=== PATIENT | female | born 1935 | race Caucasian/White ===

== ENCOUNTER 2025-01-26 15:13 | Emergency (ER) | payer OTHER, SELFPAY ==
--- OUTSIDE RECORDS SUMMARY | 2025-01-26 15:16 | XMS_ITS | Clinical Summary ---
Author Organization [facility] Address [facility] [place] [address] Care Team Providers Care Coding Quality Analyst Name Role Phone Unavailable Primary Care Provider Unavailabl e Social History Tobacco Use Types Packs/Day Years Used Date Smoking Tobacco: Never Assessed Comments Unknown Sex and Gender Information Value Date Recorded Sex Assigned at Not on file Legal Sex Female 8:07 PM CDT Gender Identity Not on file Sexual Orientation Not on file Plan of Treatment Health Maintenance Due Date Last Done Comments DTaP, Tdap and Td Vaccines ( 1 - Tdap) 1956 Zoster Vaccines (1 of 2) 1987 Pneumococcal Vaccine: 65+ Ye ars (1 of 1 - PCV) 2002 RSV Immunization or 60+ Years (1 - 1-dose 75+ series) 2012 COVID-19 Vaccine (2023-2 5 season) 2024 Influenza Adult (#1) 2024 Meningococcal B Vaccine Aged Out No l onger eligible based on patient's age to complete this topic Meningococcal Vaccine Aged Out No loy jim eligible based on patient's age to complete this topic RSV Immunizations Under 20 Months Aged Out No longer eligible based on patient's age to complete this topic
--- OUTSIDE RECORDS SUMMARY | 2025-01-26 15:16 | XMS_ITS | Continuity of Care Document ---
Author Organization [facility] Address [address] [place] [address] [place] [address] Phone Care Team Providers Care Sales Office Assistant Name Role Phone Mark Moon DO Unavailable Unavailable Advance Directives Directive Yes / No Effective Date File Name No Information Encounters Encounter Description Practice Location Reason(s) For Visit Diagnoses Date Provider Providers Copied on Encounter [facility], [address] [place] [address] [address], [place], [place], [id number], [place] [phone] [facility] No Information Red Titus. [address] [facility], [place], [address], [place]. tel: [phone] Family History Family Member Type Diagnosis Age At Onset No Information Payers Payer name Insurance type Covered green party ID Authoriza tion(s) Medicare [facility] [id number] BCBS [place] Commercial [id number] Social History Type Description Quantity Date Captured [...]
[2025-01-26 15:43] VITALS: BP 154/83; PULSE 78; RESP 16; TEMP 36.6; O2SAT 96
[2025-01-26 19:02] VITALS: BP 148/57; PULSE 83; RESP 16; TEMP 36.6; O2SAT 97
[2025-01-26 22:45] VITALS: BP 141/63; PULSE 76; RESP 14; O2SAT 99
--- NOTE | 2025-01-26 23:40 | ED_ITS ---
HPI - General Adult General Chief complaint: Extremity Injury, Lower Stated complaint: duncan leg pain Time Seen by Provider: 01/26/25 23:04 History of Present Illness HPI narrative: This is an 89-year-old female with history of sciatica presenting for sciatica pain. The over last 3 and half weeks been having pain in her left glute radiating down her leg. She now has right side as well. She has taken Motrin Tylenol with no relief. Her primary care physician prescribed her tramadol w hich she says she is allergic to as she developed a dry mouth and some eye swelling. She then was prescribed gabapentin said she was allergic to as well due to dry mouth and eye swelling. She is now requesting Percocet which she has had in the past which has been effective for her. She denies any urinary retention or bowel incontinence. No weakness to the legs. No saddle anesthesia. No history of cancer, fevers, IV drug abuse or trauma. Related Data Allergies Allergy/AdvReac Type Severity Reaction Status Date / Time gabapentin Allergy Severe Swelling Verified 01/23/25 09:05 of Lip/Tongue/Throat Sulfa (Sulfonamide Allergy Unknown Unknown Verified 01/23/25 09:05 Antibiotics) tramadol Allergy Unknown Unknown Unverified 01/23/25 09:10 codeine Allergy Unknown Verified 01/23/25 09:05 PENDING SALE TO [facility] Social History Social History Smoking status: Former smoker Exam Narrative: APPEARANCE: No apparent distress. Head: atraumatic. EYES: EOMI, NOSE: Atraumatic NECK: Trachea midline RESPIRATORY: No increased rate of breathing CARDIOVASCULAR: RRR, +1 pitting edema ABDOMINAL: Non-distended MUSCULOSKELETAl: No obvious deformities NEURO: Alert. Sensation to light touch motor function cerebellar function lower extremities although limited by pain. Patient is able to stand and pivot. SKIN:: Warm, dry. Normal color PSYCHIATRIC: Normal affect Course Vital Signs Vital signs: Vital Signs Temperature 97.8 F 01/26/25 15:43 Pulse Rate 78 01/26/25 15:43 Respiratory Rate 16 01/26/25 15:43 Blood Pressure 154/83 H 01/26/25 15:43 Pulse Oximetry 96 01/26/25 15:43 Oxygen Delivery Room Air 01/26/25 15:43 Temperature 97.9 F 01/26/25 19:02 Pulse Rate 83 01/26/25 19:02 Respiratory Rate 16 01/26/25 19:02 Blood Pressure 148/57 H 01/26/25 19:02 Pulse Oximetry 97 01/26/25 19:02 Oxygen Delivery Room Air 01/26/25 15:43 Medical Decision Making MDM Narrative Medical decision making narrative: -Course: Eight 89-year-old female presenting with sciatic pain. No red flags on history or physical. No neurologic deficits. She is requesting Percocet. This will be provided. Patient will follow-up with her primary care physician for management. -DDX includes but is not limited to: Sciatica, muscle strain Vital Signs Vital Signs: Vital Signs Temperature 97.8 F 01/26/25 15:43 Pulse Rate 78 01/26/25 15:43 Respiratory Rate 16 01/26/25 15:43 Blood Pressure 154/83 H 01/26/25 15:43 Pulse Oximetry 96 01/26/25 15:43 Oxygen Delivery Room Air 01/26/25 15:43 Temperature 97.9 F 01/26/25 19:02 Pulse Rate 83 01/26/25 19:02 Respiratory Rate 16 01/26/25 19:02 Blood Pressure 148/57 H 01/26/25 19:02 Pulse Oximetry 97 01/26/25 19:02 Oxygen Delivery Room Air 01/26/25 15:43 Discharge Plan Discharge Clinical Impression: Sciatica Patient Disposition: Home, Self-Care Condition: Stable Instructions: Antibiotic Form, Lumbar Radiculopathy (ED) Additional Instructions: You seen emergency department for back pain. Please use the Percocet as needed. Please follow-up Dr. Almeida in the next 48-72 hours for further evaluation. If you develop weakness to legs, inability to urinate or bowel incontinence return to the ED immediately. Patient Language: Pakistani Prescriptions: New oxycodone-acetaminophen [Endocet] 5-325 mg tablet 1 tablet PO Q6H PRN (Reason: pain) Qty: 20 0RF No Action tramadol 50 mg tablet 50 mg PO Q6H PRN (Reason: pain) Qty: 20 0RF gabapentin 300 mg capsule 300 mg PO QHS Qty: 30 1RF Follow-up/Referrals: Tessa Almeida MD [Primary Care Provider] - 2 Days (Sciatica )
--- OUTSIDE RECORDS SUMMARY | 2025-01-27 00:05 | XMS_ITS | Continuity of Care Document ---
Author Organization [facility] Address [address] [place] [address] [place] [address] Phone Care Team Providers Care Able Bodied Tankerman Name Role Phone Mark Moon DO Unavailable Unavailable Advance Directives Directive Yes / No Effective Date File Name No Information Encounters Encounter Description Practice Location Reason(s) For Visit Diagnoses Date Provider Providers Copied on Encounter [facility], [address] [place] [address] [address], [place], [place], [id number], [place] [phone] [facility] No Information Red Titus. [address] [facility], [place], [address], [place]. tel: [phone] Family History Family Member Type Diagnosis Age At Onset No Information Payers Payer name Insurance type Covered alliance party ID Authoriza tion(s) Medicare [facility] [id number] [place] Commercial [id number] Social History Type Description Quantity Date Captured [...]
--- OUTSIDE RECORDS SUMMARY | 2025-01-27 00:05 | XMS_ITS | Data Portability ---
Author Organization [facility] Touchbase [facility] Address [address] [address] Care Team Providers Care Meter Maker Name Role Phone Unavailable Primary Care Provider Unavailabl e Assessment No assessment recorded. Plan of Treatment Reminders Order Date Submit Date Provider Last Modified By Organization Details Last Modified Time Details Appointments None recorded. Lab CBC w/ auto diff 019 Cver[facility], [address], [address], [place], [address], 9 07:22:26 vitamin D, 25-hydrox y, total, serum 019 LOUI[facility], [address], [address], [place], [address], 9 07:22:27 Referral None recorded. Procedures None recorded. Surgeries None recorded. Imaging XR, knee - rm 10 019 [email or web address] Not available 9 17:32:27 Medication Orders None recorded. Patient TargetsNo targets recorded. Patient InstructionsNo instructions recorded. Reason for Referral None Reported. Results Created Date Observation Date Name Description Value Unit Range Abnormal Flag Note LastModifiedBy Organization Detail LastModifiedTime 03/22/20 19 03/23/2019 CBC w/ auto diff white blood cell count 5.2 thous and/u L 3.8-10 .8 normal Not Available [facility] [facility] [address] [place], [address], 03/23/2019 07:22:26 03/22/20 19 03/23/2019 CBC w/ auto diff red blood cell count 4.64 ryan on/uL 3.80-5 .10 normal Not Available [address], [address], 03/23/2019 07:22:26 03/22/2003/23/2019 CBC w/ auto diff hemoglobin 14.1 g/dL 11.7-1 5.5 normal Not Available [address], [address], 03/23/2019 07:22:26 03/22/2003/23/2019 CBC w/ auto diff hematocrit 42.1 % 35.0-4 5.0 normal Not Available [address], [address], 03/23/2019 07:22:26 03/22/2003/23/2019 CBC w/ auto diff MCV 90.7 fL 80.0-1 00.0 normal Not Available [address], [address], 03/23/2019 07:22:26 03/22/2003/23/2019 CBC w/ auto diff MCH 30.4 pg 27.0-3 3.0 normal Not Available [address], [address], 03/23/2019 07:22:26 03/22/2003/23/2019 CBC w/ auto diff MCHC 33.5 g/dL 32.0-3 6.0 normal Not Available [address], [address], 03/23/2019 07:22:26 03/22/2003/23/2019 CBC w/ auto diff RDW 12.8 % 11.0-1 5.0 normal Not Available [address], [address], 03/23/2019 07:22:26 03/22/2003/23/2019 CBC w/ auto diff platelet count 211 thous and/u L 140-40 0 normal Not Available [address], [address], 03/23/2019 07:22:26 03/22/2003/23/2019 CBC w/ auto diff MPV 11.9 fL 7.5-12 .5 normal Not Available [address], [address], 03/23/2019 07:22:26 03/22/2003/23/2019 CBC w/ auto diff absolute neutrophils 3411 cells /uL 1500-7 800 normal Not Available [address], [address], 03/23/2019 07:22:26 03/22/2003/23/2019 CBC w/ auto diff absolute lymphocytes 1316 cells /uL 850-39 00 normal Not Available [address], [address], 03/23/2019 07:22:26 03/22/2003/23/2019 CBC w/ auto diff absolute monocytes 411 cells /uL 200-95 0 normal Not Available [address], [address], 03/23/2019 07:22:26 03/22/2003/23/2019 CBC w/ auto diff absolute eosinophils 42 cells /uL 15-500 normal Not Available [address], [address], 03/23/2019 07:22:26 03/22/2003/23/2019 CBC w/ auto diff absolute basophils 21 cells /uL 0-200 normal Not Available [address], [address], 03/23/2019 07:22:26 03/22/2003/23/2019 CBC w/ auto diff neutrophils 65.6 % normal Not Available [address] [place], [address], 03/23/2019 07:22:26 03/22/2003/23/2019 CBC w/ auto diff lymphocytes 25.3 % normal Not Available [facility] [address] [place], [address], 03/23/2019 07:22:26 03/22/2003/23/2019 CBC w/ auto diff monocytes 7.9 % normal Not Available [place] [address] [place], [address], 03/23/2019 07:22:26 03/22/2003/23/2019 CBC w/ auto diff eosinophils 0.8 % normal Not Available [address], [address], 03/23/2019 07:22:26 03/22/2003/23/2019 CBC w/ auto diff basophils 0.4 % normal Not Available [address], [address], 03/23/2019 07:22:26 03/22/2003/23/2019 vitam in D, 25-hy droxy , total , serum vitamin D,25-oh,tota l,ia 20 NG/mL 30-100 low Vitam in D Statu s 25-OH Vitam in D: Defic iency : <20 ng/mL Insuf ficie ncy: 20 - 29 ng/mL Optim al: > or = 30 ng/mL For 25-OH Vitam in D testi ng on patie nts on D2-glass pplem entat ion and patie nts for whom quant itati on of D2 and D3 fract ions is requi red, the [facility] Assur eD(TM ) 25-OH VIT D, (D2,D 3), LC/MS /MS is recom mariya d: order code 80912 (tommy ents >2yrs ). For more infor moraima powell on this test, go to: http: //haven [email or web address].mary carmen stdia gnost ics.c om/fa q/FAQ 163 (This link is being provi ded for infor moraima nal/e poncho ional purpo ses only. ) Not Available [facility] [address] [place], [address], 03/23/2019 07:22:27 Result Notes None recorded. Problems No Known Problems Medical Equipment None Reported. Allergies No known drug allergies Medications Name Sig Start Date Stop Date Status Note LastModified by Organization Details LastModified Time hydrocodone 10 mg-acetaminophe n 325 mg tablet Take 1 tablet every 6 hours by oral route. 2018 active Not Available Not Available Not Avai lable Zofran 4 mg tablet Take 1-2 tablets po Q 8 hours PRN. 2018 active Not Available Not Available Not Avai lable cholecalciferol (vitamin D3) 1,250 mcg (50,000 unit) capsule Take 1 capsule every week by oral route. 2018 active Not Available Not Available Not Avai lable Vitals Date Recorded Body height Body mass index (BMI) Body weight Heart rate Systolic blood pressure Diastolic blood pressure Provider Name and Address Organization Details Last Updated DateTime 9 167.64 cm 33.9 kg/m2 56230.4 g 83 /min 130 mm[Hg] 63 mm[Hg] Xiomara Bell [employer] 9 15:31:17 Date Recorded Body height Body mass index (BMI) Body weight Heart rate Systolic blood pressure Diastolic blood pressure Provider Name and Address Organization Details Last Updated DateTime 9 167.64 cm 33.9 kg/m2 76368.4 g 97 /min 123 mm[Hg] 80 mm[Hg] Melba Jennifer [facility] [employer] 9 15:05:01 Social History Question Answer Notes LastModified by Organizat ion Details LastModified Time Tobacco Smoking Status Former Smoker Xiomara richmond [employer] [facility] 03/17/2019 15:32:44 What Was The Date Of Your Most Recent Tobacco Screening? 06/02/2019 Information n ot available 06/08/2019 How Many Years Have You Smoked Tobacco? 25 [email or web address] Information not available 03/17/2019 Sex: Unknown Functional Status None recorded. Mental Status None recorded. Family History Relationship Description Onset Age of this Age Resolved Age Notes LastModified by Organization Details LastModified Time Father Alcoholism jian Not availabl e 03/17/2019 15:31:58 Mother Alcoholism jian Not availabl e 03/17/2019 15:31:58 Mother Malignant neoplastic disease jian Not available 2018 15:32:23 Brother Malignant neoplastic disease jian Not available 2018 15:32:23 Maternal Grandmother Diabetes mellitus [email or web address] Not available 2018 15:32:32 Medical History Condition Response Coronary Artery Disease N HIV or AIDS N Gout N Kidney Stones N Hyperthyroidism N Head Trauma/Injury N Hernia N Hypothyroidism N Lung Disease N Blood Clots N COPD N Depression N Pacemaker N Anxiety Disorder N Arthritis Y Cancer N Stroke N Leg or Foot Ulcers N Neck Injury N High Cholesterol N Liver Disease N Rheumatoid Arthritis N Fibromyalgia N Headaches N Kidney Disease N Heart Problems N Migraines N Thyroid Problems N Anemia N Multiple Sclerosis N Tendon Tear N Ulcers N Heart Attack ([place]) N Diabetes N Bleeding Disorder N Seizures/Epilepsy N Tuberculosis N Urinary Tract Infection N Back Problems N Diverticulitis N Asthma Y Lupus N Peripheral Vascular Disease N Sleep Disorder N GERD/Reflux N Hepatitis N Aneurysm N Heart Disease Y Pulmonary Embolism N Hypertension N Osteoporosis N Gynecological HistoryNo gynecological history recorded. Obstetrics History GPAL:G 0 P 0 0 0 0 Past Encounters Encounter ID Performer Location Encounter Start Date Encounter Closed Date Diagnosis/Indication Diagnosis SNOMED-CT Code Diagnosis ICD10 Code Diagnosis Note [id number] [facility] [address] [place] [id number] 03/17/2019 14:09:37 03/17/2019 16:27:34 Knee pain 73715800 M25.569 Malaise and fatigue 2717 46186 R53.83 M89.9 M94.9 R53.81 [id number] [facility] [address] [place] [id number] 06/02/2019 14:36:50 06/05/2019 09:59:25 Health Concerns Section Related Observation LastModified by Organization Detai ls LastModified Time None Recorded Concern Status LastModified by Organization Details LastModified Time None Recorded Advance Directives Directive None Recorded Payers Encounter Date Sequence Insurance Name Policy Number Policy Nguyen Covered Member ID Nguyen Member ID Guarantor Name 03/17/2019 1 [place] VIMAL Orellana [id number] Imelda Orellana 03/17/2019 2 [facility] [id number] Imelda Orellana [id number] Imelda Orellana 06/02/2019 1 [place]IM[place] Orell[place] [id number] Imelda Orellana 06/02/2019 2 [place] [id number] Imelda Orellana [id number] Imelda Orellana OBGyn Episode No OBEpisode recorded.
--- OUTSIDE RECORDS SUMMARY | 2025-01-27 00:05 | XMS_ITS | Clinical Summary ---
Author Organization [facility] Address [facility] [place] [address] Care Team Providers Care Gasoline Engine Assembler Name Role Phone Unavailable Primary Care Provider [...]
[2025-01-27] MEDS: KETOROLAC 30 MG/ML VIAL (*BKC) IM (00:08)
[2025-01-27 00:50] VITALS: BP 138/73; PULSE 82; RESP 17; O2SAT 99
== END 2025-01-27 00:52 | disposition home or self-care (01) ==
LOC: ANHED 01-27 00:02
PROVIDERS: Emergency Provider Emergency Medicine; PCP Family Medicine
DX: M54.32 Sciatica, left side (principal); Z87.891 Personal history of nicotine dependence
CPT/HCPCS: 96372; 99283; J1885

== ENCOUNTER 2025-03-30 13:20 | Emergency (ER) | payer OTHER, SELFPAY ==
--- NOTE | ~2025-03-30 | CT_ITS ---
CT lumbar spine wo con Ordering provider: Kenneth Swann III, DO History: 89 years Female with . lower extremity numbness . Comparison: None. Technique: CT lumbar spine without contrast. Automated exposure control and iterative reconstruction technique were employed. The dose-length product was 1095.12 mGy-cm. FINDINGS: VERTEBRAE: Minimal anterolisthesis at the level of L4-L5. Otherwise, Normal height and alignment. No subluxation or visible acute fracture. DISC SPACES: Well maintained. facet joint disease at the level of L3-L4, L4-L5 and L5-S1. T12-L1: No stenosis. L1-L2: No stenosis. Mild diffuse disc bulge with osteophytes. L2-L3: No stenosis. Mild diffuse disc bulge with osteophytes. L3-L4: Mild spinal canal stenosis secondary to broad based disc bulge, facet arthropathy, and ligamen óscar flavum hypertrophy. L4-L5: Moderate spinal canal stenosis secondary to broad based disc bulge, facet arthropathy, and li gamentum flavum hypertrophy. Right nerve root compression is highly suggestive with intervertebral fo ramen narrowing. L5-S1: No stenosis. Diffuse disc bulge with osteophytes. PARASPINOUS SOFT TISSUES: Mild atheromatous disease of the abdominal aorta. Right renal cyst. Cardiom egaly. IMPRESSION: Multilevel disc bulges with variable degrees of spinal canal stenosis and intervertebral foraminal na rrowing. No acute osseous abnormality. Minimal anterolisthesis at the level of L4-L5. Reviewed, dictated and finalized at location A. IMPRESSION: Multilevel disc bulges with variable degrees of spinal canal stenosis and inter vertebral foraminal narrowing. No acute osseous abnormality. Minimal anterolisthesis at the level of L4-L5.
--- NOTE | ~2025-03-30 | CT_ITS ---
EXAMINATION: CTA BRAIN/CAROTID DATE: 03/30/2025 14:18 INDICATION: Unsteady gait TECHNIQUE: Computed tomographic angiography (CTA) of the head and neck was performed with 100 mL Omni paque-350 intravenous contrast. Multiplanar reconstructions and maximum intensity projection 3D-recon structions of the carotid arteries and of the intracranial arteries were created by the technologist on a separate workstation. Precontrast CT of the head was also obtained. Automated exposure control and iterative reconstruction technique were employed.The dose-length product was 1513.61 mGy-cm. COMPARISON: None. FINDINGS: Carotid arteries: Thoracic aorta is normal in caliber with no dissection. Bilateral vertebral arteries are codominant w ith no evidence stenosis or dissection. There is a small amount of atherosclerotic plaque with 0% amrit nosis of the both the right and left carotid bulbs relative to normal distal artery lumen diameter (N ASCET criteria). Cervical soft tissues are unremarkable. Moderate cervical spondylosis. Mild biapical pleural-parenchymal scarring. Head: No acute intracranial hemorrhage, acute infarction or abnormal extra axial fluid collection. There is minimal scattered white matter hypoattenuation consistent with chronic small vessel ischemic disease . Ventricles are normal and symmetric. No mass/mass effect. No abnormally enhancing lesions on the po stcontrast imaging. The orbits, paranasal sinuses and mastoid air cells are normal. Intracranial arteries Vertebral arteries are codominant. Small amount of nonhemodynamically significant atherosclerotic roxi que at the bilateral carotid siphons. There is no hemodynamically significant stenosis in the vertebr al, basilar and internal carotid arteries. Both A1 and P1 segments are patent. There are no aneurysm s identified. Cerebral arterial arborization appears symmetric. IMPRESSION: 1. Small amount of atherosclerotic plaque with 0% stenosis of the right and left carotid bulbs relati ve to normal distal artery lumen diameter (NASCET criteria). 2. Normal aging brain with no acute intracranial process or abnormally enhancing brain lesions. 3. Unremarkable cerebral CT angiogram with small amount of nonhemodynamically significant atheroscler otic plaque at the carotid siphons but no hematoma significant stenosis, thrombosis or aneurysm. Reviewed, dictated and finalized at location A. IMPRESSION: 1. Small amount of atherosclerotic plaque with 0% stenosis of the right and lef t carotid bulbs relative to normal distal artery lumen diameter (NASCET criteri a). 2. Normal aging brain with no acute intracranial process or abnormally enhancin g brain lesions. 3. Unremarkable cerebral CT angiogram with small amount of nonhemodynamically s ignificant atherosclerotic plaque at the carotid siphons but no hematoma signif icant stenosis, thrombosis or aneurysm.
[2025-03-30 13:10] VITALS: BP 164/85; PULSE 89; RESP 18; TEMP 36.9; O2SAT 98
[2025-03-30 13:48] LABS: Basophils Percent Auto 0.2 % (0.2-1.2); Eosinophils Absolute Auto 0.1 K/mm3 (0-0.3); Eosinophils Percent Auto 1.7 % (0-4.4); Hematocrit 43.2 % (37.0-47.0); Hemoglobin 13.6 g/dL (12.0-15.0); Immature Granulocyte Absolute 0.03 K/mm3 (0.00-0.031); Immature Granulocyte Percent A 0.5 % (0-0.5); Lymphocytes Absolute Auto 1.15 K/mm3 (0.9-3.2); Lymphocytes Percent Auto 17.5 % (18.3-44.2); Mean Corpuscular HGB Conc 31.5 g/dl (32-36); Mean Corpuscular Hemoglobin 30.1 pg (26-34); Mean Corpuscular Volume 95.6 fl (80-100); Mean Platelet Volume 11.9 fl (7.4-10.4); Monocytes Absolute Auto 0.4 K/mm3 (0.1-0.6); Monocytes Percent Auto 5.5 % (2.6-8.5); Neutrophils Absolute Auto 4.9 K/mm3 (1.3-6.7); Neutrophils Percent Auto 74.6 % (45.5-73.1); Platelet Count Result 242 k/mm3 (150-375); Red Blood Count 4.52 M/mm3 (4.2-5.4); Red Cell Distribution Width 13.5 % (11.5-14.5); White Blood Count 6.6 K/mm3 (4.5-10.0)
--- NOTE | 2025-03-30 13:58 | ECG_ITS ---
Test Date: 2025-03-30 16:04:37 Measurements Intervals [place] Rate: 99 P: 81 MA: 151 QRS: -45 QRSD: 94 T: 32 QT: 335 QTc: 430 Interpretive Statements SINUS RHYTHM LEFT AXIS DEVIATION [QRS AXIS < -30] ANTEROSEPTAL MYOCARDIAL INFARCTION , OF INDETERMINATE AGE [40+ ms Q WAVE IN V1-V4] ABNORMAL ECG No previous ECG available for comparison Electronically Signed On 03-31-2025 08:02:09 CDT by Bebo Godfrey M.D.
[2025-03-30 13:59] LABS: Anion Gap 8 mmol/L (4-12); Blood Urea Nitrogen 33 mg/dL (7-17); Calcium 10.1 mg/dL (8.4-10.2); Carbon Dioxide 31 mmol/L (22-30); Chloride 101 mmol/L (98-107); Estimated Glomerular Filt Rate > 60; Glucose 105 mg/dL (65-110); Potassium 4.6 mmol/L (3.4-5.0); Sodium 140 mmol/L (137-145)
[2025-03-30 14:02] LABS: INR 0.9; Prothrombin Time 12.9 Seconds (11.1-14.7)
[2025-03-30 14:03] LABS: Partial Thromboplastin Time 25.7 Seconds (22.3-36.8)
--- NOTE | 2025-03-30 14:03 | ED.GENADULT ---
HPI - General Adult General Chief complaint: Extremity Problem,Nontraumatic Stated complaint: decreased mobility for months Time Seen by Provider: 03/30/25 13:47 History of Present Illness HPI narrative: Pt presents with unsteady gait for two months getting worse. Pt says she can't feel the floor with her feet so she is unsteady even with walder. Pt also fell a couple of moths ago and hurt her right leg. Pt also has urinary frequency and burning. Related Data Home Medications Medication Instructions Recorded Confirmed Last Taken Type Inner Ear Balance BYMOUTH 03/30/25 Unknown History Lian's wort 300 mg capsule 300 mg PO DAILY 03/30/25 Unknown History acetaminophen 325 mg tablet 325 mg PO Q6H PRN 03/30/25 Unknown History (Tylenol) beetroot BYWIUTH 03/30/25 Unknown History cholecalciferol (vitamin D3) 50 50 mcg PO DAILY 03/30/25 Unknown History mcg (2,000 unit) capsule coenzyme Q10 75 mg capsule (Ultra 75 mg PO DAILY 03/30/25 Unknown History CoQ10) goldenseal root 333 mg capsule mg PO 03/30/25 Unknown History ibuprofen 200 mg tablet (Advil) 200 mg PO Q6H PRN 03/30/25 Unknown History keratin 5 % topical gel ea topical 03/30/25 Unknown History lutein 40 mg capsule 40 mg PO DAILY 03/30/25 Unknown History lysine HCl 500 mg capsule 500 mg PO DAILY 03/30/25 Unknown History Allergies Allergy/AdvReac Type Severity Reaction Status Date / Time gabapentin Allergy Severe Swelling Verified 03/30/25 11:37 of Lip/Tongue/Throat Sulfa (Sulfonamide Allergy Unknown Unknown Verified 03/30/25 11:37 Antibiotics) tramadol Allergy Unknown Unknown Verified 03/30/25 11:37 codeine Allergy Unknown Verified 03/30/25 11:37 Review of Systems Review of Systems: All systems reviewed & are unremarkable except as noted in HPI and below PMFSH Social History Social History Smoking status: Former smoker Exam Const: General: healthy appearing and no acute distress Nutritional Appearance: well nourished Orientation/consciousness: patient oriented x3 Limitations: no limitations HENMT: Head: normal to inspection Eyes: Pupils: Equal, round and reactive pupils present EOM: EOMs intact bilaterally Resp: Effort & Inspection: normal respiratory effort Auscultation: clear to auscultation bilaterally Cardio: Rate: regular rate Rhythm: abnormal rhythm (seems like bigemeny on my exam) GI: GI Palp: Yes Soft to palpation and No Tenderness to palpation present (GI) Auscultation: normal bowel sounds Skin: General skin exam: normal color Wounds: no wounds Other: yeast erythema along skin folds of abd/perineum Neuro: General: patient oriented x3, moves all extremities and no focal motor deficits Speech: normal speech Extrem: General: normal to inspection and no clubbing, cyanosis or edema Psych: Mental Status: mental status grossly normal Affect: normal affect Attitude: cooperative Course Vital Signs Vital signs: Vital Signs Temperature 98.5 F 03/30/25 13:10 Pulse Rate 89 03/30/25 13:10 Respiratory Rate 18 03/30/25 13:10 Blood Pressure 164/85 H 03/30/25 13:10 Pulse Oximetry 98 03/30/25 13:10 Oxygen Delivery Room Air 03/30/25 13:10 Temperature 98.5 F 03/30/25 13:10 Pulse Rate 89 03/30/25 13:10 Respiratory Rate 18 03/30/25 13:10 Blood Pressure 164/85 H 03/30/25 13:10 Pulse Oximetry 98 03/30/25 13:10 Oxygen Delivery Room Air 03/30/25 13:10 Medical Decision Making MDM Narrative Medical decision making narrative: Pt presents with unsteady gait and urinary issues. will get a cta and labs and ua and talk with PCP. cta head and neck unremarkable, labs unremarkable. ekg nsr. discussed with dr cheng and would like CT lumbar spine to rule out stenosis. CT lumbar shows some disc bulging but no stenosis. pt does not want to be admitted. home on nsaid for a week and follow up. Vital Signs Vital Signs: Vital Signs Temperature 98.5 F 03/30/25 13:10 Pulse Rate 89 03/30/25 13:10 Respiratory Rate 18 03/30/25 13:10 Blood Pressure 164/85 H 03/30/25 13:10 Pulse Oximetry 98 03/30/25 13:10 Oxygen Delivery Room Air 03/30/25 13:10 Temperature 98.5 F 03/30/25 13:10 Pulse Rate 89 03/30/25 13:10 Respiratory Rate 18 03/30/25 13:10 Blood Pressure 164/85 H 03/30/25 13:10 Pulse Oximetry 98 03/30/25 13:10 Oxygen Delivery Room Air 03/30/25 13:10 Lab Data 03/30/25 13:39 03/30/25 13:39 Labs: Lab Results 03/30/25 03/30/25 Range/Units 13:39 16:47 WBC 6.6 (4.5-10.0) K/mm3 RBC 4.52 (4.2-5.4) M/mm3 Hgb 13.6 (12.0-15.0) g/dL Hct 43.2 (37.0-47.0) % MCV 95.6 (80-100) fl MCH 30.1 (26-34) pg MCHC 31.5 L (32-36) g/dl RDW 13.5 (11.5-14.5) % Plt Count 242 (150-375) k/mm3 MPV 11.9 H (7.4-10.4) fl Immature Gran % (Auto) 0.5 (0-0.5) % Neut % (Auto) 74.6 H (45.5-73.1) % Lymph % (Auto) 17.5 L (18.3-44.2) % Vernon % (Auto) 5.5 (2.6-8.5) % Eos % (Auto) 1.7 (0-4.4) % Baso % (Auto) 0.2 (0.2-1.2) % Lymph # (Auto) 1.15 (0.9-3.2) K/mm3 Vernon # (Auto) 0.4 (0.1-0.6) K/mm3 Eos # (Auto) 0.1 (0-0.3) K/mm3 Baso # (Auto) 0.0 (0.0-0.1) K/mm3 Abs Immat Gran (auto) 0.03 (0.00-0.031) K/mm3 Absolute Neuts (auto) 4.9 (1.3-6.7) K/mm3 Absolute Nucleated RBC 0.000 (0.0-0.012) K/mm3 Nucleated RBC % 0.0 (0.0-0.2) % PT 12.9 (11.1-14.7) Seconds INR 0.9 APTT 25.7 (22.3-36.8) Seconds Sodium 140 (137-145) mmol/L Potassium 4.6 (3.4-5.0) mmol/L Chloride 101 (98-107) mmol/L Carbon Dioxide 31 H (22-30) mmol/L Anion Gap 8 (4-12) mmol/L BUN 33 H (7-17) mg/dL Creatinine 0.66 L (0.7-1.0) mg/dL Estim Creat Clear Calc Not Reportable Estimated GFR > 60 (59 - ) Glucose 105 (65-110) mg/dL Calcium 10.1 (8.4-10.2) mg/dL Total Bilirubin 0.4 (0.2-1.3) mg/dL Direct Bilirubin 0.0 (0-0.3) mg/dL AST 37 H (14-36) U/L ALT 24 (6-35) U/L Alkaline Phosphatase 84 (38-126) U/L Total Protein 8.0 (6.3-8.2) g/dL Albumin 4.2 (3.5-5.1) g/dL Urine Color Pending Urine Appearance Pending Urine pH Pending Ur Specific [place] Pending Urine Protein Pending Urine Glucose (UA) Pending Urine Ketones Pending Ur Blood (Man) Pending Urine Nitrate Pending Urine Bilirubin Pending Urine Urobilinogen Pending Leukocyte Esterase Rfl Pending Discharge Plan Discharge Clinical Impression: Gait instability, Bilateral leg numbness Patient Disposition: Home Condition: Stable Instructions: Antibiotic Form, Fall Prevention for Older Adults (ED) Patient Language: Georgian Prescriptions: New ibuprofen 800 mg tablet 800 mg PO TID Qty: 21 0RF No Action lysine HCl 500 mg capsule 500 mg PO DAILY Lian's wort 300 mg capsule 300 mg PO DAILY cholecalciferol (vitamin D3) 50 mcg (2,000 unit) capsule 50 mcg PO DAILY Inner Ear Balance BYMOUTH Ultra CoQ10 75 mg capsule 75 mg PO DAILY lutein 40 mg capsule 40 mg PO DAILY Rx Instructions: administer with meals beetroot BYMOUTH goldenseal root 333 mg capsule PO keratin 5 % gel topical acetaminophen [Tylenol] 325 mg tablet 325 mg PO Q6H PRN ibuprofen [Advil] 200 mg tablet 200 mg PO Q6H PRN Follow-up/Referrals: Eriberto Cheng MD [Primary Care Provider] -
--- OUTSIDE RECORDS SUMMARY | 2025-03-30 14:04 | XMS_ITS | Continuity of Care Document ---
Author Organization [facility] Address [address] [place] [address] [place] [address] Phone Care Team Providers Care Director Insurance Name Role Phone Mark Moon DO Unavailable Unavailable Advance Directives Directive Yes / No Effective Date File Name No Information Encounters Encounter Description Practice Location Reason(s) For Visit Diagnoses Date Provider Providers Copied on Encounter [facility], [id number] [place] [address] [address], [place], [place], [id number], [place] tel:[phone] [facility] No Information [facility]. [address] [facility], [place], [address], [place]. tel: [phone] Family History Family Member Type Diagnosis Age At Onset No Information Payers Payer name Insurance type Covered constitution party ID Authoriza tion(s) Medicare [facility] [id number] [place]BS [place] [id number] Social History Type Description Quantity Date Captured [...]
--- OUTSIDE RECORDS SUMMARY | 2025-03-30 14:04 | XMS_ITS | Clinical Summary ---
Author Organization [facility] Address [facility] [place] [address] Care Team Providers Care Ham Pumper Name Role Phone Unavailable Primary Care Provider [...] Td Vaccines ( 1 - Tdap) 1956 Pneumococcal Vaccine: 50+ Ye ars (1 of 1 - PCV) 1987 Zoster Vaccines (1 of 2) 1987 RSV Immunization or 60+ Years (1 - 1-dose 75+ series) 2012 COVID-19 Vaccine (2023-2 5 season) 2024 Meningococcal B Vaccine Aged Out No l onger eligible based on patient's age to complete this topic Meningococcal Vaccine Aged Out No loy jim eligible based on patient's age to complete this topic RSV Immunizations Under 20 Months Aged Out No longer eligible based on patient's age to complete this topic
[2025-03-30 14:25] LABS: Alanine Aminotransferase 24 U/L (6-35); Albumin Level 4.2 g/dL (3.5-5.1); Alkaline Phosphatase 84 U/L (38-126); Aspartate Amino Transferase 37 U/L (14-36); Bilirubin,Total 0.4 mg/dL (0.2-1.3)
[2025-03-30 16:57] LABS: Add Urine Microscopic? YES; Appearance Urine Clear (Clear); Bacteria Urine 4+ /hpf; Bilirubin Urine Negative (Negative); Blood Urine Negative (Negative); Color Urine Yellow (Yellow); Glucose Urine UA Negative (Negative); Ketones Urine Negative (Negative); Leukocyte Esterase Ur 1+ LEU/UL (Negative); Nitrate Urine Positive (Negative); Non Pathogenic Casts 0-2; Protein Urine Negative (Negative); RBC Urine 0-2 /hpf (0-2); Specific Grav Ur > 1.045 (1.001-1.035); Squamous Epithelial Cell Urine None Seen /hpf (Few); Urobilinogen Urine 0.2 mg/dL (<2.0)
== END 2025-03-30 23:00 | disposition home or self-care (01) ==
PROVIDERS: Emergency Medicine; Emergency Provider Emergency Medicine; PCP Internal Medicine
DX: R26.89 Other abnormalities of gait and mobility (principal); R20.0 Anesthesia of skin
CPT/HCPCS: 36415; 70496; 70498; 72131; 80048; 80076; 81001; 85025; 85610; 85730; 87086; 93005; 99284; Q9967

== ENCOUNTER 2025-08-26 16:56 | Inpatient (IN) | payer OTHER, SELFPAY ==
--- OUTSIDE RECORDS SUMMARY | 2004-01-10 06:00 | XMS_ITS | Continuity of Care Document ---
Author Organization [facility] Address [address] [place] [address] [place] [address] Phone Care Team Providers Care Child Abuse Worker Name Role Phone Mark Moon DO Unavailable Unavailable Advance Directives Directive Yes / No Effective Date File Name No Information Encounters Encounter Description Practice Location Reason(s) For Visit Diagnoses Date Provider Providers Copied on Encounter [facility], [id number] [place] [address] [address], [place], [place], [id number], [place] tel:[phone] [facility] No Information Red Titus. [address] [facility], [place], [address], [place]. tel: [phone] Family History Family Member Type Diagnosis Age At Onset No Information Payers Payer name Insurance type Covered democrat ID Authoriza tion(s) Medicare [facility] [id number] BC[place] Commercial [id number] Social History Type Description Quantity Date Captured Comments Sex Female Smoking Status No Information Chief Complaint And Reason For Visit No Information Reason For Referral Reason For Referral No Information History Of Present Illness Encounter Date Complaint History Of Prese nt Illness No Information Functional Status Date Functional Assessmen t No Information Instructions Date Instruction Additional Infor mation No Information Assessments Type Assessment Date No Information Patient Care Teams Name Effective Dates (start - stop) Status Members No Information
[2025-08-26] VITALS (77 sets, daily range): BP systolic 54–145; BP diastolic 25–105; PULSE 80–184; RESP 18–36; TEMP 36.1–36.9; O2SAT 87–100
--- NOTE | ~2025-08-26 | XR_ITS ---
EXAMINATION: XR chest ET placement COMPARISON: No comparisons available. HISTORY: ET PLACEMENT AND NGT PLACEMENT FINDINGS: Small left basilar infiltrate and effusion. No pneumothorax. Heart is normal size. Mediastinal and hilar contours are within normal limits. Bony thorax no acute abnormality. Miscellaneous: ET tube 3 cm above the maxime, nasogastric tube in the stomach. Impression: Support apparatus as above Reviewed, dictated and finalized at location P. Impression: Support apparatus as above
--- NOTE | ~2025-08-26 | XR_ITS ---
EXAMINATION: XR chest 1V portable COMPARISON: No comparisons available. HISTORY: elevated heart rate FINDINGS: Mild pulmonary venous congestion. No pneumothorax. Mild cardiomegaly. Mediastinal and hilar contours are within normal limits. Bony thorax no acute abnormality. Miscellaneous: None Impression: Mild CHF Reviewed, dictated and finalized at location P. Impression: Mild CHF
--- NOTE | ~2025-08-26 | CT_ITS ---
Imelda Orellana EXAMINATION: CT abdomen pelvis w con COMPARISON: None HISTORY: Hypotension, GI bleed TECHNIQUE: Axial images were obtained through the abdomen, pelvis post administration of IV contrast. Oral contrast was also administered. Coronal reconstruction images were obtained from the axial views. CT scan performed using dose optimization techniques including the following automated exposure control; adjustment of mA and/or kV; use of iterative reconstruction technique. Automatic exposure control was used to reduce radiation dose. Permanent radiation dose record is archived to PACS. FINDINGS: CT abdomen: LUNG BASES: The lung bases demonstrate chronic changes with basilar areas of linear atelectasis. Mild cardiomegaly. LIVER: Mild hepatic steatosis. Portal vein patent. No intrahepatic biliary duct dilatation. SPLEEN: Multiple calcified splenic granulomas.. KIDNEYS: Right Kidney: Right kidney midpole simple cyst 2 x 2 cm. Left Kidney: Unremarkable. No calculi. No hydronephrosis ADRENAL GLANDS: Unremarkable. PANCREAS: Severe atrophy of the pancreas. GALLBLADDER/BILIARY: Unremarkable. No biliary dilatation. STOMACH AND ESOPHAGUS: There is thickening noted of the distal stomach and duodenum with abnormal density noted concerning for active bleeding. There is stranding noted in the surrounding soft tissues but no extraluminal free air noted, there is a retracted against the bowel wall in this location, distinction from pneumatosis is limited. BOWEL/MESENTERY: There is thickening noted of the third and fourth part of the duodenum with thickened loops of proximal small bowel also evident. Moderate fecal content, no colitis or diverticulitis. Appendix normal. Mesentery normal. There are no thickened loops of small bowel noted distally. ADENOPATHY/RETROPERITONEUM: No lymphadenopathy. AORTA/VASCULATURE: Normal caliber aorta. FREE FLUID OR FREE AIR: No free fluid.. CT pelvis: SOLID ORGANS/REPRODUCTIVE: Uterus atrophic, no adnexal mass. BLADDER: Within normal limits. OSSEOUS STRUCTURES: No acute osseous abnormality.No suspicious lesions. OVERLYING SOFT TISSUES: Small fat-containing umbilical hernia. Small fat- containing left inguinal hernia. IMPRESSION: Thickening of the distal stomach and proximal duodenum with a focus of active bleeding suspected in this area although noncontrast images were not obtained. Endoscopy is recommended to assess. There are additional thickened loops of proximal small bowel probably related to underlying enteritis. Results discussed with the referring clinician immediately Reviewed, dictated and finalized at location P. IMPRESSION: Thickening of the distal stomach and proximal duodenum with a focus of active b leeding suspected in this area although noncontrast images were not obtained. E ndoscopy is recommended to assess. There are additional thickened loops of prox imal small bowel probably related to underlying enteritis. Results discussed wi th the referring clinician immediately
--- NOTE | ~2025-08-26 | XR_ITS ---
EXAMINATION: XR abdomen gastric tube insert, 08/27/2025 0:25 CDT HISTORY: OG COMPARISON: No comparisons available. Technique: 3 view. Findings: There are dilated loops of small bowel the largest measuring 4 cm. No free air. No abnormal calcifications No acute osseous abnormality. Nasogastric tube terminates in the stomach but should be advanced 5 cm. Impression: 1. Small bowel obstruction Reviewed, dictated and finalized at location P. Impression: 1. Small bowel obstruction
--- NOTE | 2025-08-26 17:03 | ECG_ITS ---
Test Date: 2025-08-26 16:59:00 Measurements Intervals [place] Rate: 149 P: 0 AR: 0 QRS: 17 QRSD: 99 T: 2 QT: 288 QTc: 454 Interpretive Statements ATRIAL FIBRILLATION WITH RAPID VENTRICULAR RESPONSE WITH VENTRICULAR COUPLET LOW QRS VOLTAGE IN PRECORDIAL LEADS CONSIDER ANTERIOR INFARCT, AGE INDETERMINATE BORDERLINE ST-T WAVE ABNORMALITY- INF/LAT LEADS BASELINE ARTIFACT- I, II, III, AVR, AVL, AVF, V6 ABNORMAL ECG Compared to ECG 03/30/2025 16:04:37 SINUS RHYTHM NO LONGER PRESENT Electronically Signed On 08-26-2025 19:53:55 CDT by Yogi Jay D.O.
[2025-08-26] MEDS: LACTATED RINGERS 1,000 ML 999 ML IV CONT ×2 (17:04→17:26)
[2025-08-26 17:14] LABS: Mean Corpuscular HGB Conc 28.9 g/dl (32-36); Mean Corpuscular Hemoglobin 27.3 pg (26-34); Mean Corpuscular Volume 94.4 fl (80-100); Platelet Count Result 390 k/mm3 (150-375); Red Blood Count 1.61 M/mm3 (4.2-5.4); White Blood Count 9.8 K/mm3 (4.5-10.0)
[2025-08-26] MEDS: ENOXAPARIN 100 MG/ML SYRINGE 95 MG SUB-Q (17:16)
[2025-08-26 17:27] LABS: Hematocrit 15.2 % (37.0-47.0); Hemoglobin 4.4 g/dL (12.0-15.0)
[2025-08-26 17:28] LABS: Alanine Aminotransferase 26 U/L (6-35); Albumin Level 2.5 g/dL (3.5-5.1); Alkaline Phosphatase 56 U/L (38-126); Anion Gap 21 mmol/L (4-12); Aspartate Amino Transferase 30 U/L (14-36); Bilirubin,Total 0.2 mg/dL (0.2-1.3); Blood Urea Nitrogen 57 mg/dL (7-17); Calcium 8.3 mg/dL (8.4-10.2); Carbon Dioxide 10 mmol/L (22-30); Chloride 101 mmol/L (98-107); Estimated CRCL calculation 36 ml/min; Estimated Glomerular Filt Rate 46; Glucose 174 mg/dL (65-110); Potassium 4.9 mmol/L (3.4-5.0); Sodium 132 mmol/L (137-145); Total Protein 5.5 g/dL (6.3-8.2)
--- OUTSIDE RECORDS SUMMARY | 2025-08-26 17:38 | XMS_ITS | Clinical Summary ---
Author Organization [facility] Address [facility] [place] [address] Care Team Providers Care Technical Healthcare Consultant Name Role Phone Unavailable Primary Care Provider [...] - 1-dose 75+ series) 2012 COVID-19 Vaccine ( - 2023-2 5 season) 2025 Influenza Adult (#1) 2025 Meningococcal B Vaccine Aged Out No l onger eligible based on patient's age to complete this topic Meningococcal Vaccine Aged Out No loy jim eligible based on patient's age to complete this topic RSV Immunizations Under 20 Months Aged Out No longer eligible based on patient's age to complete this topic
--- OUTSIDE RECORDS SUMMARY | 2025-08-26 17:38 | XMS_ITS | Data Portability ---
Author Organization [facility] [employer] [facility] Address [address] [address] Care Team Providers Care Software Technician Name Role Phone Unavailable Primary Care Provider Unavailabl e Assessment No assessment recorded. Plan of Treatment Reminders Order Date Submit Date Provider Last Modified By Organization Details Last Modified Time Details Appointments None recorded. Lab CBC w/ auto diff [address] [facility], [address], [address], [place], [address], 9 07:22:26 vitamin D, 25-hydrox y, total, serum [address] [facility], [address], [place], [address], 9 07:22:27 Referral None recorded. Procedures None [...] and/u L 3.8-10 .8 normal Not Available [employer] [facility] [address] [address] [place], [address], 03/23/2019 07:22:26 03/22/20 19 03/23/2019 CBC w/ auto diff red blood cell count 4.64 ryan on/uL 3.80-5 .10 normal Not Available [address], [address], 03/23/2019 07:22:26 03/22/2003/23/2019 CBC w/ auto diff hemoglobin 14.1 g/dL 11.7-1 5.5 normal Not Available [address], [address], 03/23/2019 07:22:26 03/22/2003/23/2019 CBC w/ auto diff hematocrit 42.1 % 35.0-4 5.0 normal Not Available [address], [address], 03/23/2019 07:22:26 03/22/2003/23/2019 CBC w/ auto diff MCV 90.7 fL 80.0-1 00.0 normal Not Available [address], [address], 03/23/2019 07:22:26 03/22/2003/23/2019 CBC w/ auto diff MCH 30.4 pg 27.0-3 3.0 normal Not Available [address], [address], 03/23/2019 07:22:26 03/22/2003/23/2019 CBC w/ auto diff MCHC 33.5 g/dL 32.0-3 6.0 normal Not Available [address], [address], 03/23/2019 07:22:26 03/22/2003/23/2019 CBC w/ auto diff RDW 12.8 % 11.0-1 5.0 normal Not Available [address], [address], 03/23/2019 07:22:26 03/22/2003/23/2019 CBC w/ auto diff platelet count 211 thous and/u L 140-40 0 normal Not Available [address], [address], 03/23/2019 07:22:26 03/22/2003/23/2019 CBC w/ auto diff MPV 11.9 fL 7.5-12 .5 normal Not Available [address], [address], 03/23/2019 07:22:26 03/22/2003/23/2019 CBC w/ auto diff absolute neutrophils 3411 cells /uL 1500-7 800 normal Not Available [address], [address], 03/23/2019 07:22:26 03/22/2003/23/2019 CBC w/ auto diff absolute lymphocytes 1316 cells /uL 850-39 00 normal Not Available [address], [address], 03/23/2019 07:22:26 03/22/2003/23/2019 CBC w/ auto diff absolute monocytes 411 cells /uL 200-95 0 normal Not Available [address], [address], 03/23/2019 07:22:26 03/22/2003/23/2019 CBC w/ auto diff absolute eosinophils 42 cells /uL 15-500 normal Not Available [address], [address], 03/23/2019 07:22:26 03/22/2003/23/2019 CBC w/ auto diff absolute basophils 21 cells /uL 0-200 normal Not Available [address], [address], 03/23/2019 07:22:26 03/22/2003/23/2019 CBC w/ auto diff neutrophils 65.6 % normal Not Available [address] [place], [address], 03/23/2019 07:22:26 03/22/2003/23/2019 CBC w/ auto diff lymphocytes 25.3 % normal Not Available [place] [address] [place], [address], 03/23/2019 07:22:26 03/22/2003/23/2019 CBC w/ auto diff monocytes 7.9 % normal Not Available [address] [place] [address] [place], [address], 03/23/2019 07:22:26 03/22/2003/23/2019 CBC w/ auto diff eosinophils 0.8 % normal Not Available [address] [place] [address] [place], [address], 03/23/2019 07:22:26 03/22/2003/23/2019 CBC w/ auto diff basophils 0.4 % normal Not Available [place] [address] [place], [address], 03/23/2019 07:22:26 03/22/2003/23/2019 vitam in D, 25-hy [...] /MS is recom mariya d: order code 23325 (tommy ents >2yrs ). For more infor moraima powell on this test, go to: http: //haven powell.que stdia gnost ics.c om/fa q/FAQ 163 (This link is being provi ded for infor moraima nal/e jarettat ional purpo ses only. ) Not Available [employer] [facility] [address], [place], [address], 03/23/2019 07:22:27 Result Notes None recorded. Problems [...] index (BMI) Body weight Heart rate Systolic And Diastolic Provider Name and Address Organization Details Last Updated DateTime 03/17/2019 167.64 cm 33.9 kg/m2 03559.4 g 83 /min 130/63 mm[Hg] Xiomara Bell [facility] 03/17/2019 15:31:17 Date Recorded Body height Body mass index (BMI) Body weight Heart rate Systolic And Diastolic Provider Name and Address Organization Details Last Updated DateTime 06/02/2019 167.64 cm 33.9 kg/m2 26125.4 g 97 /min 123/80 mm[Hg] Melba Rodriguez [facility] 06/02/2019 15:05:01 Social History Question Answer Notes LastModified by Organizat ion Details LastModified Time Tobacco Smoking Status Former Smoker [facility]omara Bell [facility] 03/17/2019 15:32:44 What Was The Date Of Your Most Recent Tobacco Screening? 06/02/2019 Information n ot available 06/08/2019 How Many Years Have You Smoked Tobacco? 25 [email or web address] Information not available 03/17/2019 Sex: Unknown Functional Status None recorded. Mental Status None recorded. Family History Relationship Description Onset Age of this Age Resolved Age Notes LastModified by Organization Details LastModified Time Father Alcoholism [email or web address] Not availabl e 03/17/2019 15:31:58 Mother Alcoholism [email or web address] Not availabl e 03/17/2019 15:31:58 Mother Malignant neoplastic disease [email or web address] Not available 2018 15:32:23 Brother Malignant neoplastic disease [email or web address] Not available 2018 15:32:23 Maternal Grandmother Diabetes mellitus [email or web address] Not available 2018 15:32:32 Medical History Condition Response HIV or AIDS N Coronary Artery Disease N Gout N Kidney Stones N Hyperthyroidism N Hernia N Head Trauma/Injury N COPD N Blood Clots N Lung Disease N Hypothyroidism N Depression N Pacemaker N Anxiety Disorder N Arthritis Y Cancer N Stroke N Neck Injury N Leg or Foot Ulcers N High Cholesterol N Liver Disease N Rheumatoid Arthritis N Headaches N Fibromyalgia N Kidney Disease N Heart Problems N Migraines N Thyroid Problems N Anemia N Multiple Sclerosis N [place]endon Tear N Ulcers N Heart Attack ([place]) N Diabetes N Bleeding Disorder N Seizures/Epilepsy [...] Diagnosis SNOMED-CT Code Diagnosis ICD10 Code Diagnosis IMO Codes Diagnosis Note [id number] Bebo Davis MD [facility] [address] [place] [address] 03/17/2019 14:09:37 03/17/2019 16:27:34 Knee pain [id number] M25.569 Malaise and fatigue 2717 42804 R53.83 M89.9 M94.9 R53.81 [id number] Bebo Davis MD [facility] [address] [place] [address] 06/02/2019 14:36:50 06/05/2019 09:59:25 Health Concerns Section Related Observation LastModified by Organization Detai ls LastModified Time None Recorded Concern Status LastModified by Organization Details LastModified Time None Recorded Advance Directives Directive None Recorded Payers Insurance Date Sequence Insurance Name Policy Number Policy Nguyen Covered Member ID Nguyen Member ID Guarantor Name 06/26/2019 1 [place] Imelda Orellana [id number] Imelda Orellana 06/26/2019 2 [place]) [id number] Imelda Orellana [id number] Imelda Orellana OBGyn Episode No OBEpisode recorded.
[2025-08-26] MEDS: SODIUM CHLORIDE 0.9% IVPB (17:53)
[2025-08-26] MEDS: PROTAMINE SULFATE IVPB (17:53)
[2025-08-26 17:56] LABS: Band Neutrophils Percent 2 % (0-6); Lymphocytes Absolute Manual 1.27 K/mm3 (1.1-4.5); Lymphocytes Percent Manual 13.0 % (18-44); Metamyelocytes Percent 1 %; Monocytes Absolute Manual 0.29 K/mm3 (0.1-0.90); Monocytes Percent Manual 3 % (3-9); Neutrophils Absolute Manual 8.13 K/mm3 (1.3-6.7); Neutrophils Percent Manual 81 % (46-73); Total Cells Counted 100
[2025-08-26 17:57] LABS: Schistocytes None Seen
[2025-08-26 18:00] LABS: Anisocytosis 1+; Hypochromasia 2+
[2025-08-26] MEDS: PANTOPRAZOLE SODIUM IV 40 MG VIAL 80 MG IV PUSH (18:02)
--- NOTE | 2025-08-26 18:17 | ED.GENADULT ---
HPI - General Adult General Chief complaint: Syncope Stated complaint: syncopy, unresponsive Time Seen by Provider: 08/26/25 17:15 History of Present Illness HPI narrative: This is an 89-year-old female presenting ED with syncope. Patient says the for the last 3 she has been having nausea. She has started to have diarrhea over last 5 days. She has not noticed any jeanette blood in the diarrhea but has been dark. Today she had a presyncopal event thought she was going to . EMS was called to when they arrive she was in atrial fibrillation with rapid ventricular response. She she was then brought to the hospital for evaluation. At the moment the patient's main complaint is that she feels very weak. She does not have any history of atrial fibrillation and she is aware of. She does not take any medications. She is not on blood thinners or anticoagulation. Goals of care were discussed with patient. She is full code. She is a clinical psychologist within an active practice and would like all measures taken to preserve her life. Related Data Home Medications ?Medication ?Instructions ?Recorded ?Confirmed ?Last Taken ?Type Inner Ear Balance BYMOUTH 03/30/25 08/02/25 Unknown History acetaminophen 325 mg tablet 325 mg PO Q6H PRN 03/30/25 08/02/25 Unknown History (Tylenol) Lian's wort 300 mg capsule 300 mg PO DAILY PRN 08/01/25 08/02/25 Unknown History beetroot BYMOUTH PRN 08/01/25 08/02/25 Unknown History cholecalciferol (vitamin D3) 50 50 mcg PO DAILY PRN 08/01/25 08/02/25 Unknown History mcg (2,000 unit) capsule coenzyme Q10 75 mg capsule (Ultra 75 mg PO DAILY PRN 08/01/25 08/02/25 Unknown History CoQ10) goldenseal root 333 mg capsule mg PO PRN 08/01/25 08/02/25 Unknown History keratin 5 % topical gel ea topical PRN 08/01/25 08/02/25 Unknown History lutein 40 mg capsule 40 mg PO DAILY PRN 08/01/25 08/02/25 Unknown History lysine HCl 500 mg capsule 500 mg PO DAILY PRN 08/01/25 08/02/25 Unknown History saffron extract 176.5 mg tablet mg PO 08/01/25 08/02/25 Unknown History black cohosh 200 mg capsule 200 mg PO DAILY 08/02/25 08/02/25 Unknown History Allergies Allergy/AdvReac Type Severity Reaction Status Date / Time gabapentin Allergy Severe Swelling Verified 03/30/25 11:37 of Lip/Tongue/Throat Sulfa (Sulfonamide Allergy Unknown Unknown Verified 03/30/25 11:37 Antibiotics) tramadol Allergy Unknown Unknown Verified 03/30/25 11:37 codeine Allergy Unknown Verified 03/30/25 11:37 [facility] Past Medical History Medical History (Updated 08/26/25 @ 20:04 by Korey Kang MD) Follow up Synovial cyst of popliteal space [[place]], left knee Seasonal allergies Impaired functional mobility, balance, gait, and endurance Chronic back pain Depression Encounter for routine adult health examination with abnormal findings Pedal edema Family History Family History Mother ETOHism Father ETOHism Social History Social History Smoking status: Former smoker Alcohol intake: never Do You Feel Safe in your Home?: Yes Lack of Transportation: YES Lack of Food: Never True Current Housing: I Have Housing Concerned About Future Housing: No Difficulty Paying Gas/Electric Bills: No Difficulty Paying for Meds: No Currently Unemployed: No Education: Master's Degree or Higher Difficulty w/ Childcare or Family Care: No Living arrangements: alone Occupation/Education: occupation Gender identity (if verbalized by the patient): Female Exam Narrative: APPEARANCE: Patient is unwell appearing, A&O x3 Head: atraumatic. EYES: EOMI, NOSE: Atraumatic NECK: Trachea midline RESPIRATORY: No increased rate of breathing, CTAB CARDIOVASCULAR: Rapid, irregular no peripheral edema ABDOMINAL: Soft nontender no guarding rebound Rectal exam: Melanotic stool around the anus MUSCULOSKELETAl: No obvious deformities NEURO: Alert. Moving 4/4 extremities SKIN:: Pale PSYCHIATRIC: Normal affect Course Vital Signs Vital signs: Vital Signs Temperature 98.3 F 08/26/25 16:53 Pulse Rate 162 H 08/26/25 16:53 Respiratory Rate 33 H 08/26/25 16:53 Blood Pressure 125/105 H 08/26/25 16:53 Pulse Oximetry 99 08/26/25 16:53 Oxygen Delivery Room Air 08/26/25 16:53 Temperature 98.0 F 08/26/25 17:49 Pulse Rate 143 H 08/26/25 18:06 Respiratory Rate 30 H 08/26/25 18:06 Blood Pressure 92/49 L 08/26/25 18:06 Pulse Oximetry 100 08/26/25 18:06 Oxygen Delivery Nasal Cannula 08/26/25 17:05 Oxygen Flow Rate 2 08/26/25 17:05 Medical Decision Making [facility] Narrative Medical decision making narrative: -Course: 89-year-old female presenting in atrial fibrillation with rapid ventricular response and hypotension in the setting of 5 days of diarrhea. Patient is toxic appearing on arrival. Two large-bore IVs pads were placed on the patient. Point of care cardiothoracic ultrasound showed a completely flat IVC and a hyperdynamic heart indicating low volume status. Atrial fibrillation felt to be caused by 5 days of diarrhea and dehydration so she is being fluid resuscitated. Anticipating the need for emergent cardioversion verbal order was placed for Lovenox with instructions to hold until after the hemoglobin had returned. Unfortunately the Lovenox was immediately given. After this the hemoglobin returned at 4.4. Patient was given reversal agent - protamine at 95 mg. This was discussed with the nursing staff and it was explained to the patient that there was a medical error had occurred with potential for harm. Rectal exam revealed melanotic stool. Patient was given 1 unit emergent blood and type and cross for 4 more units. Patient given 80 mg of Protonix. She has been started on amiodarone. On re-evaluation the patient's heart rate is starting to decrease and her blood pressure is beginning to improve although still hypotensive at 85/50 Central line was placed in the R fem. Phenylephrine has been started. Patient has received 2 L of crystalloid and is receiving her 3rd unit of blood now. We will hold off on further blood and fluids as the patient has received a large volume resuscitation given advanced age there was concern for TACO. Repeat vital signs show that she is now rhythm controlled in normal sinus rhythm at a rate of 80 with a blood pressure 108/51. Lactic cleared from 12.6 -> 3.6. CT abdomen pelvis showed a likely ulcer in the distal stomach/duodenum with active bleeding. No free air in the abdomen. Case was discussed with Dr. Hewitt, Jennifer Gong and Dr. Chaney. Dr. Hewitt will come into the hospital for an emergent scope for active GI bleed. I was then notified by nursing staff that the patient had be given vomiting blood. Patient was given 10 mg of IV Reglan. An NG tube was placed to suction drain stomach. At this point patient has started to develop crackles in the lungs and looked more short of breath. Patient was intubated for airway protection as well as for beginning of transfusion associated circulatory overload. After the patient was intubated she became hypotensive. Dr. Welsh and then arrived at bedside insistent that the resuscitation including additional blood products, multiple pressors and Solu-Cortef. Please see her note for further details. An emergent arterial line was placed. Nonsterile. Further care per the ICU and Dr. Chaney. Vital Signs Vital Signs: Vital Signs Temperature 98.3 F 08/26/25 16:53 Pulse Rate 162 H 08/26/25 16:53 Respiratory Rate 33 H 08/26/25 16:53 Blood Pressure 125/105 H 08/26/25 16:53 Pulse Oximetry 99 08/26/25 16:53 Oxygen Delivery Room Air 08/26/25 16:53 Temperature 98.0 F 08/26/25 17:49 Pulse Rate 143 H 08/26/25 18:06 Respiratory Rate 30 H 08/26/25 18:06 Blood Pressure 92/49 L 08/26/25 18:06 Pulse Oximetry 100 08/26/25 18:06 Oxygen Delivery Nasal Cannula 08/26/25 17:05 Oxygen Flow Rate 2 08/26/25 17:05 Lab Data 08/26/25 17:08 08/26/25 17:08 Labs: Lab Results 08/26/25 Range/Units 17:08 WBC 9.8 (4.5-10.0) K/mm3 RBC 1.61 L (4.2-5.4) M/mm3 Hgb 4.4 L* D (12.0-15.0) g/dL Hct 15.2 L* (37.0-47.0) % MCV 94.4 (80-100) fl MCH 27.3 (26-34) pg MCHC 28.9 L (32-36) g/dl RDW 14.7 H (11.5-14.5) % Plt Count 390 H D (150-375) k/mm3 MPV 10.6 H (7.4-10.4) fl Immature Gran % (Auto) Not Reportable Neut % (Auto) Not Reportable Lymph % (Auto) Not Reportable [place] % (Auto) Not Reportable Eos % (Auto) Not Reportable Baso % (Auto) Not Reportable Lymph # (Auto) Not Reportable [place] # (Auto) Not Reportable Eos # (Auto) Not Reportable Baso # (Auto) Not Reportable Abs Immat Gran (auto) Not Reportable Absolute Neuts (auto) Not Reportable Absolute Nucleated RBC Not Reportable Total Counted 100 Neutrophils % (Manual) 81 H (46-73) % Band Neutrophils % 2 (0-6) % Lymphocytes % (Manual) 13.0 L (18-44) % Monocytes % (Manual) 3 (3-9) % Metamyelocytes % 1 % Nucleated RBC % Not Reportable Abs Neuts (Manual) 8.13 H (1.3-6.7) K/mm3 Abs Lymphs (Manual) 1.27 (1.1-4.5) K/mm3 Abs Monocytes (Manual) 0.29 (0.1-0.90) K/mm3 Nucleated RBCs 4 % Platelet Estimate Adequate (Adequate) Hypochromasia 2+ Anisocytosis 1+ Schistocytes None seen Sodium 132 L (137-145) mmol/L Potassium 4.9 (3.4-5.0) mmol/L Chloride 101 (98-107) mmol/L Carbon Dioxide 10 L (22-30) mmol/L Anion Gap 21 H (4-12) mmol/L BUN 57 H D (7-17) mg/dL Creatinine 1.11 H (0.7-1.0) mg/dL Estim Creat Clear Calc 36 ml/min Estimated GFR 46 L (59 - ) Glucose 174 H (65-110) mg/dL Lactic Acid 12.6 H* (0.7-2.0) mmol/L Calcium 8.3 L (8.4-10.2) mg/dL Total Bilirubin 0.2 (0.2-1.3) mg/dL AST 30 (14-36) U/L ALT 26 (6-35) U/L Alkaline Phosphatase 56 (38-126) U/L Total Protein 5.5 L (6.3-8.2) g/dL Albumin 2.5 L (3.5-5.1) g/dL Blood Type A Positive Antibody Screen Negative Crossmatch See Detail Critical Care Time Critical Care Time Critical Care Time: Yes Total Critical Care Time: 150 Discharge Plan Discharge Clinical Impression: Hemorrhagic shock, Acute upper GI bleed, Atrial fibrillation with rapid ventricular response Patient Disposition: Still a Patient Condition: Stable Patient Language: Gu[place] Prescriptions: No Action Inner Ear Balance BYMOUTH acetaminophen [Tylenol] 325 mg tablet 325 mg PO Q6H PRN saffron extract 176.5 mg tablet PO [place]'s wort 300 mg capsule 300 mg PO DAILY PRN lysine HCl 500 mg capsule 500 mg PO DAILY PRN lutein 40 mg capsule 40 mg PO DAILY PRN Rx Instructions: administer with meals keratin 5 % gel topical PRN goldenseal root 333 mg capsule PO PRN Ultra CoQ10 75 mg capsule 75 mg PO DAILY PRN cholecalciferol (vitamin D3) 50 mcg (2,000 unit) capsule 50 mcg PO DAILY PRN beetroot BYMOUTH PRN triamterene-hydrochlorothiazid 37.5-25 mg capsule 1 cap PO .3x/week Qty: 30 0RF black cohosh 200 mg capsule 200 mg PO DAILY Follow-up/Referrals: Eriberto Cheng MD [Primary Care Provider, Internal Medicine]
[2025-08-26] MEDS: PHENYLEPHRINE HCL INJ 50 MG in SODIUM CHLORIDE 0.9% IV 245 ML 12 ML IV CONT (19:02)
--- NOTE | 2025-08-26 19:05 | ECG_ITS ---
Test Date: 2025-08-26 19:17:03 Measurements Intervals [place] Rate: 87 P: 24 CO: 168 QRS: -24 QRSD: 101 T: 10 QT: 336 QTc: 405 Interpretive Statements SINUS RHYTHM LOW QRS VOLTAGE IN PRECORDIAL LEADS POSSIBLE ANTERIOR MYOCARDIAL INFARCTION , PROBABLY OLD CONSIDER INFERIOR INFARCT, AGE INDETERMINATE BASELINE ARTIFACT- I, II, III, AVR, AVL, AVF, V1-V6 ABNORMAL ECG Compared to ECG 08/26/2025 16:59:00 Atrial fibrillation no longer present Electronically Signed On 08-26-2025 19:57:23 CDT by Yogi Jay D.O.
[2025-08-26] MEDS: SODIUM CHLORIDE 0.9% IV 250 ML 30 ML IV CONT ×7 (19:41→23:30)
[2025-08-26] MEDS: TUBING, BLOOD PLUM PUMP TUBING 1 EACH XX (19:41)
--- NOTE | 2025-08-26 20:20 | PC.NURSE ---
20:20 Patient's family ran into the hallway stating patient is vomiting blood. RN notified . in room placing NGT and RN giving reglan 10 MG IV.
[2025-08-26] MEDS: METOCLOPRAMIDE HCL INJ 10 MG/2 ML VIAL (20:34)
[2025-08-26] MEDS: LIDOCAINE 1% LOCAL INJ 10 ML VIAL (20:34)
[2025-08-26] MEDS: HYDROmorphone HCL INJ (*CRX) 1 MG/ML SYR IV PUSH (20:47)
[2025-08-26] MEDS: NOREPINEPHRINE 8 MG/D5W 250 ML 8 MG/250 ML BAG 56.3 MG (20:55)
[2025-08-26] MEDS: DOPamine 400 MG/D5W 250 ML 400 MG/250 ML BAG 8.69 MG IV CONT (21:10)
[2025-08-26] MEDS: PANTOPRAZOLE SODIUM IV 80 MG in SODIUM CHLORIDE 0.9% IV 500 ML 50 MG IV CONT (21:30)
[2025-08-26] MEDS: CALCIUM GLUCONATE 1,000 MG/10 ML VIAL 1000 MG (21:31)
--- NOTE | 2025-08-26 21:58 | P.HP_ITS ---
H&P: HPI History of Present Illness Date/Time: 08/26/25 21:58 Chief Complaint: Syncope Narrative: Relatively healthy 89-year-old female with a past medical history of depression, gait instability and chronic back pain who presented to the ER via EMS after syncopal episode at home. The patient initially reported feeling short of breath and having some diarrhea. When patient arrived to the ER air she was found to be in AFib RVR. EMS report patient was satting 80% on room air at home and was placed on a non-rebreather. In route to the hospital the patient had another syncopal episode. The patient's blood pressures in the field were 50s over 30s and heart rates were in the 160s. Patient received 500 mL fluid bolus in route to the hospital with a improvement in systolics up to the low 100s. Patient's oxygen level was improved in the ER and wean down to 2 L nasal cannula. Blood pressures almost immediately dropped back down into the 70s and 80s. There was concern that patient was having hypotension due to unstable atrial fibrillation. She was started on amiodarone infusion. Stat labs were obtained. In anticipation for possible electrical cardioversion Lovenox had been ordered but was not intended to be administered until after labs had returned. Unfortunately patient received Lovenox 1 milligram/kilogram x1 just prior to return of lab results despite verbal order instructing staff to not administered medications to labs were resulted. Patient's initial lab results demonstrated profound anemia with hemoglobin of 4.4 but platelet count was within normal limits. The patient was immediately given prothrombin complex. She received rapid infusion of 3 units of packed red blood cells. Went pure wick catheter was placed on the patient was noted that she had incontinent melenic stools. She had a right femoral line placed by ER staff. The patient received [address] of the abdomen pelvis was obtained without contrast which demonstrated Active extravasation of blood in the distal stomach and proximal duodenum. Patient was started on on Protonix with 80 mg IV push followed by Protonix drip. Blood pressures initially but improved. The patient was initially hypoxic on arrival to the hospital with no history of lung disease. Patient's oxygen was weaned down to 2 L nasal cannula. During initial resuscitation the patient did convert back to sinus rhythm. Before the ER provider could call and update the patient services assistant about the patient's CT findings the patient started having hematemesis of bright red blood. Subsequently an NG was placed in the patient was intubated for airway protection. After intubation ER provider placed in art line while I came down to assist with stabilizing the patient. The patient had initially been on low- dose Neymar-Synephrine but at the time of my eval arrival at the bedside the patient's blood pressure is acutely dropped into the 60s. And continued to trend downward. Patient's Neymar-Synephrine was maxed out and The patient was then started on Levophed with immediate escalation of Levophed to 30 mics to maintain blood pressure. Patient did not have significant improvement in blood pressures in subsequently dopamine was added while waiting for pharmacy to prepare vasopressin. Also stat orders for blood work placed in the patient received another 2 units of blood administered with rapid infusion. An additional L of crystalloid was administered. Blood pressures while awaiting arrival of blood products patient's blood pressures did trend down into the 30s to 50 systolic. Want art line was placed blood pressures were measuring in the 50s to 60s systolic. [facility] through blood administration blood pressures did improve up into the 150s and 160s with rapid deescalation of pressors. But the patient's blood pressures did trend back prior to arrival to the ICU. Massive transfusion protocol orders were placed including FFP, cryoprecipitate is and platelets. GI arrived at bedside to perform EGD. Just prior to EGD patient's blood pressures did again dropped precipitously. The patient subsequently received multiple boluses of albumin and additional 5 L of isotonic fluids. The patient's initial lactic acid arrival to the ER been 12 but came down to 3.6 with resuscitation blood pressures were stabilized for procedure and during procedures noted the patient had a large pulsatile blood clot in the proximal duodenum. Gastroenterology attempted injection of 12 mg of epinephrine in total and Marvin is a yen without improvement. I called our surgeon who stated that direct surgical intervention would not be in the patient's best interest and that her best chance of survival would be for direct embolization given her clinical instability. Subsequently I started making attempts to transfer the patient to tertiary care around 23:30. Contacted [facility]. I was initially informed the accepting physician and bed availability at [facility] and had canceled transfer request that he other facilities with miss information of bed availability. Only to find out that bed was not available and had to reestablish transfer process with eventual acceptance patient at [facility]. At this point in the process we had exhausted the blood products available at our facility. The patient was maxed out on Levophed 50, vasopressin at 0.6, Neymar-Synephrine at 200. The patient received additional boluses of albumin and continued blood product administration with detailed below. The patient did wake up around 00:30 on the ventilator and was responding appropriately to questions and nodding her head yes and no appropriately with responses. She indicated she wanted continued resuscitation efforts. I did discuss with the patient that she has not stable and that we could not provide any further services at this facility and we were going to transfer her to tertiary care. The patient nodded her head. I did explain to her bed this is a last chance effort to save her life she she did start to cry. The patient received between 11 and 12 units of packed red blood cells. A total of 8 units of FFP were ordered but evidently blood bank was having difficulty preparing products and at the time of this documentation the patient is only received 3 or 4 units of FFP. The patient received 3 of cryoprecipitate and 2 or 3 units of platelets. The patient received at the 6 L of crystalloid. She received at least 4 doses of albumin. She received approximately 8 amps of bicarb and 2 amps of calcium gluconate as well as 2 amps of calcium chloride. The patient had almost 2 L out of this suction canisters. The patient art line just prior to leaving the hospital was reading blood pressures in the 40. However at that time the patient was still awake and responding appropriately. Blood pressure cuff at that time was demonstrating pressures of 60s. The patient received the last 2 units of blood available at our facility at that time so somewhere around unit 13 or 14 with immediate improvement her blood pressures. At the time the patient was loaded for the air ambulance service the patient's systolic blood pressures were up to the low 100 systolic on cuff pressures but art line pressures were not correlating. But given the patient was awake responding and following commands and somewhat reassured that her blood pressures were higher than the art line pressures never indicating 40s to 60s systolic. Pressors at when the patient left of our facility Levophed 50, Neymar-Synephrine 220, vaso at 0.6, dopamine at 20. Despite the patient's advanced age she is extremely functional and still works full-time as a clinical psychologist. She was alert oriented x4 and was still trying to make her wishes known. She indicated that she would still want continued maximum efforts for resuscitation. The patient sons are both . The patient's only contacts at the hospital are a friend who was employed by the patient for over 40 years and 2 at home caregivers. Patient has caregivers at home due to gait instability. She does not have healthcare power of commonwealth attorney paperwork. Review of Systems 2 Review of Systems: Unobtainable due to patient condition PMFSH Past Medical History Medical History (Updated 08/27/25 @ 02:52 by Ely Chaney DO) Melena Synovial cyst of popliteal space [[place]], left knee Seasonal allergies Impaired functional mobility, balance, gait, and endurance Chronic back pain Depression Family History Family History Mother ETOHism Father ETOHism Social History Social History (Updated 08/27/25 @ 02:43 by Ely Chaney DO) Social History: The patient raised 2 sons both of which are . She has an ex- not lives in [place]. She has a [id number] that lives out of state but they are not close and do not communicate often. She still works full-time as a clinical psychologist. She has 24 hour caregivers to help her due to her chronic is difficulty with ambulation. She does not have any advanced directives or a Healthcare power of commonwealth attorney. He only contact available are a friend who is worked with her for 40 years and her paid caregivers. Code status: Full code Smoking status: Former smoker Alcohol intake: never Do You Feel Safe in your Home?: Yes Lack of Transportation: YES Lack of Food: Never True Current Housing: I Have Housing Concerned About Future Housing: No Difficulty Paying Gas/Electric Bills: No Difficulty Paying for Meds: No Currently Unemployed: No Education: Master's Degree or Higher Difficulty w/ Childcare or Family Care: No Living arrangements: alone Occupation/Education: occupation Gender identity (if verbalized by the patient): Female Meds Home Medications and Allergies Home Medications ?Medication ?Instructions ?Recorded ?Confirmed ?Type Inner Ear Balance BYMOUTH 03/30/25 08/02/25 Hi story acetaminophen 325 mg tablet 325 mg PO Q6H PRN 03/30/25 08/02/25 History (Tylenol) Lian's wort 300 mg capsule 300 mg PO DAILY PRN 08/02/25 History beetroot BYMOUTH PRN 08/01/25 5 History cholecalciferol (vitamin D3) 50 50 mcg PO DAILY PRN 08/02/25 History mcg (2,000 unit) capsule coenzyme Q10 75 mg capsule (Ultra 75 mg PO DAILY PRN 0 08/01/25 08/02/25 History CoQ10) goldenseal root 333 mg capsule mg PO PRN 08/01/2507/16 History keratin 5 % topical gel ea topical PRN 08/01/2507/16 History lutein 40 mg capsule 40 mg PO DAILY PRN 08/01/25 08/02/25 History lysine HCl 500 mg capsule 500 mg PO DAILY PRN 08/01/25 08/02/25 History saffron extract 176.5 mg tablet mg PO 08/01/25 5 History black cohosh 200 mg capsule 200 mg PO DAILY 08/02/25 0 08/02/25 History triamterene 37.5 1 cap PO .3x/week #30 caps 0 08/02/25 08/02/25 Rx mg-hydrochlorothiazide 25 mg capsule Held on 08/21/25. Instructions: Pt not taking now. Edema down Allergies Allergy/AdvReac Type Severity Reaction Status Date / Time gabapentin Allergy Severe Swelling Verified 03/30/25 11:37 of Lip/Tongue/Throat Sulfa (Sulfonamide Allergy Unknown Unknown Verified 03/30/25 11:37 Antibiotics) tramadol Allergy Unknown Unknown Verified 03/30/25 11:37 codeine Allergy Unknown Verified 03/30/25 11:37 Vital Signs Vital Signs - 24 hr 08/26/25 16:53 08/26/25 17:02 08/26/25 17:05 Temperature 98.3 F Pulse Rate 162 H 153 H Respiratory Rate 33 H 36 H Blood Pressure 125/105 H 84/41 L Pulse Oximetry 99 99 98 Oxygen Delivery Room Air Nasal Cannula Oxygen Flow Rate 2 Fraction of Inspired Oxygen 08/26/25 17:11 08/26/25 17:12 08/26/25 17:15 Temperature Pulse Rate 145 H 138 H 149 H Respiratory Rate 35 H 32 H 30 H Blood Pressure 80/44 L Pulse Oximetry 99 98 100 Oxygen Delivery Oxygen Flow Rate Fraction of Inspired Oxygen 08/26/25 17:16 08/26/25 17:26 08/26/25 17:30 Temperature Pulse Rate 141 H 139 H 137 H Respiratory Rate 34 H 22 H 24 H Blood Pressure 79/41 L 83/45 L Pulse Oximetry 98 Oxygen Delivery Oxygen Flow Rate Fraction of Inspired Oxygen 08/26/25 17:31 08/26/25 17:32 08/26/25 17:41 Temperature Pulse Rate 134 H 143 H 133 H Respiratory Rate 36 H 33 H 34 H Blood Pressure 76/38 L 79/44 L Pulse Oximetry 100 97 Oxygen Delivery Oxygen Flow Rate Fraction of Inspired Oxygen 08/26/25 17:45 08/26/25 17:46 08/26/25 17:47 Temperature Pulse Rate 132 H 129 H 127 H Respiratory Rate 24 H 26 H 30 H Blood Pressure 67/28 L Pulse Oximetry 95 99 100 Oxygen Delivery Oxygen Flow Rate Fraction of Inspired Oxygen 08/26/25 17:49 08/26/25 18:04 08/26/25 18:06 Temperature 98.0 F Pulse Rate 134 H 134 H 143 H Respiratory Rate 24 H 31 H 30 H Blood Pressure 67/28 L 92/49 L Pulse Oximetry 93 95 100 Oxygen Delivery Oxygen Flow Rate Fraction of Inspired Oxygen 08/26/25 18:07 08/26/25 18:11 08/26/25 18:12 Temperature Pulse Rate 142 H 148 H 144 H Respiratory Rate 26 H 30 H 31 H Blood Pressure 78/52 L Pulse Oximetry 100 99 Oxygen Delivery Oxygen Flow Rate Fraction of Inspired Oxygen 08/26/25 18:17 08/26/25 18:22 08/26/25 18:31 Temperature Pulse Rate 140 H 123 H 106 H Respiratory Rate 27 H Blood Pressure 76/63 L 77/35 L 77/35 L Pulse Oximetry 100 Oxygen Delivery Oxygen Flow Rate Fraction of Inspired Oxygen 08/26/25 18:32 08/26/25 18:35 08/26/25 18:38 Temperature 97.8 F 97.4 F L Pulse Rate 107 H 111 H 122 H Respiratory Rate 31 H 33 H Blood Pressure 77/35 L 64/35 L 64/43 L Pulse Oximetry 100 100 Oxygen Delivery Oxygen Flow Rate Fraction of Inspired Oxygen 08/26/25 18:41 08/26/25 18:49 08/26/25 19:01 Temperature 97.4 F L Pulse Rate 128 H 111 H 99 Respiratory Rate 31 H 28 H 33 H Blood Pressure 80/37 L 84/43 L 93/46 L Pulse Oximetry 100 100 100 Oxygen Delivery Oxygen Flow Rate Fraction of Inspired Oxygen 08/26/25 19:02 08/26/25 19:11 08/26/25 19:30 Temperature Pulse Rate 96 91 80 Respiratory Rate 22 H Blood Pressure 93/46 L 110/58 L 95/67 L Pulse Oximetry 100 Oxygen Delivery Oxygen Flow Rate Fraction of Inspired Oxygen 08/26/25 19:48 08/26/25 20:16 08/26/25 20:21 Temperature Pulse Rate 82 109 H 112 H Respiratory Rate 26 H 18 27 H Blood Pressure 108/51 L 94/65 L Pulse Oximetry 100 Oxygen Delivery Oxygen Flow Rate Fraction of Inspired Oxygen 08/26/25 20:30 08/26/25 20:31 08/26/25 20:32 Temperature Pulse Rate 100 100 102 H Respiratory Rate 34 H 27 H 34 H Blood Pressure 76/56 L 90/73 L Pulse Oximetry 95 93 97 Oxygen Delivery Oxygen Flow Rate Fraction of Inspired Oxygen 08/26/25 20:33 08/26/25 20:40 08/26/25 20:50 Temperature 98 F Pulse Rate 100 107 H 91 Respiratory Rate 26 H Blood Pressure 76/56 L 82/59 L Pulse Oximetry 98 100 Oxygen Delivery Mechanical Ventilation Oxygen Flow Rate Fraction of Inspired Oxygen 100 08/26/25 20:55 08/26/25 21:10 08/26/25 21:16 Temperature 98 F Pulse Rate 85 100 141 H Respiratory Rate 20 Blood Pressure 82/53 L 112/78 Pulse Oximetry 100 Oxygen Delivery Oxygen Flow Rate Fraction of Inspired Oxygen 08/26/25 21:17 08/26/25 21:20 08/26/25 21:22 Temperature 98 F 98 F Pulse Rate 110 H 184 H 93 Respiratory Rate 18 24 H 18 Blood Pressure 112/78 90/42 L 88/39 L Pulse Oximetry 100 100 100 Oxygen Delivery Oxygen Flow Rate Fraction of Inspired Oxygen 08/26/25 21:25 08/26/25 21:34 08/26/25 21:35 Temperature 97.7 F Pulse Rate 101 H 84 95 Respiratory Rate 18 18 Blood Pressure 85/25 L 145/58 H Pulse Oximetry 100 Oxygen Delivery Oxygen Flow Rate Fraction of Inspired Oxygen 08/26/25 21:38 08/26/25 21:41 08/26/25 21:50 Temperature 98 F 98 F 98.0 F Pulse Rate 91 88 129 H Respiratory Rate 20 18 18 Blood Pressure 143/50 H 107/47 L 85/25 L Pulse Oximetry 99 99 98 Oxygen Delivery Oxygen Flow Rate Fraction of Inspired Oxygen Exam 2 Narrative: Weight 92.7 kg BMI 32 Const: Other: Acutely ill-appearing, obese HENMT: Other: Marked conjunctival pallor marked mucosal pallor tacky mucous membranes 7.5 ET tube measuring 21 at the lip, OG tube present with bright red blood Eyes: Other: Marked conjunctival pallor, no scleral icterus Neck: Other: No JVD, no lymphadenopathy, large neck circumference, each day in the left neck size 14 Resp: Other: Coarse breath sounds bilaterally, equal expansion with ventilation, chest x-ray post intubation reviewed ET tube in appropriate position Cardio: Other: Irregular tachycardia, weak peripheral pulses, mottled, no murmur GI: Other: Hyperactive bowel sounds, nontender palpation : Other: Montilla catheter in place with approximately 300 mL of clear yellow urine Skin: Other: Marked pallor, cold to touch, mottled Neuro: Other: Patient initially was unresponsive on the ventilator for the 1st couple of hours but after vigorous resuscitation about 3-1/2 hours into resuscitation the patient woke up and was responding to questions nodding appropriately any answer to questions and following commands including blinking her eyes and squeezing staff hand Extrem: Other: Mild lower extremity edema, weak promotional model strength Psych: Other: Tearful, further evaluation not possible due to patient condition H&P: Results Labs Labs: Laboratory Tests 08/26/25 22:03 08/26/25 22:03 08/26/25 08/26/25 08/26/25 17:08 17:32 17:32 WBC 9.8 RBC 1.61 L Hgb 4.4 L* D Hct 15.2 L* MCV 94.4 MCH 27.3 MCHC 28.9 L RDW 14.7 H Plt Count 390 H D MPV 10.6 H Immature Gran % (Auto) Not Reportable Neut % (Auto) Not Reportable Lymph % (Auto) Not Reportable [place] % (Auto) Not Reportable Eos % (Auto) Not Reportable Baso % (Auto) Not Reportable Lymph # (Auto) Not Reportable [place] # (Auto) Not Reportable Eos # (Auto) Not Reportable Baso # (Auto) Not Reportable Abs Immat Gran (auto) Not Reportable Absolute Neuts (auto) Not Reportable Absolute Nucleated RBC Not Reportable Total Counted 100 Neutrophils % (Manual) 81 H Band Neutrophils % 2 Lymphocytes % (Manual) 13.0 L Monocytes % (Manual) 3 Metamyelocytes % 1 Nucleated RBC % Not Reportable Abs Neuts (Manual) 8.13 H Abs Lymphs (Manual) 1.27 Abs Monocytes (Manual) 0.29 Nucleated RBCs 4 Platelet Estimate Adequate Hypochromasia 2+ Anisocytosis 1+ Schistocytes None seen PT INR APTT Fibrinogen D-Dimer Puncture Site ABG pH ABG pCO2 ABG pO2 ABG PO2/FiO2 Ratio ABG HCO3 ABG O2 Saturation ABG O2 Content ABG Base Excess A-a Gradient Oxyhemoglobin Carboxyhemoglobin Methemoglobin Reduced Hemoglobin Total Hemoglobin O2 Delivery Device O2 Liters/Min Minute Volume Vent Rate Vent Mode FiO2 Tidal Volume PEEP Peak Inspir Pressure Pressure Support Sodium 132 L Potassium 4.9 Chloride 101 Carbon Dioxide 10 L Anion Gap 21 H BUN 57 H D Creatinine 1.11 H Estim Creat Clear Calc 36 Estimated GFR 46 L Glucose 174 H Lactic Acid 12.6 H* Calcium 8.3 L Phosphorus Magnesium Total Bilirubin 0.2 AST 30 ALT 26 Alkaline Phosphatase 56 Total Protein 5.5 L Albumin 2.5 L Procalcitonin Random Cortisol Urine Color Urine Appearance Urine pH Ur Specific [place] Urine Protein Urine Glucose (UA) Urine Ketones Ur Blood (Man) Urine Nitrate Urine Bilirubin Urine Urobilinogen Add Ur Microanalysis Leukocyte Esterase Rfl Urine RBC Urine WBC Ur Squamous Epith Cells Urine Bacteria Urine Casts Nasal MRSA (PCR) Blood Type A Positive Rho(D) Type Cancelled Antibody Screen Negative Crossmatch See Detail See Detail See Detail 08/26/25 08/26/25 08/26/25 19:44 22:03 22:03 WBC 17.1 H 16.6 H RBC 3.33 L Hgb Hct MCV MCH MCHC RDW Plt Count MPV Immature Gran % (Auto) Neut % (Auto) Lymph % (Auto) [place] % (Auto) Eos % (Auto) Baso % (Auto) Lymph # (Auto) [place] # (Auto) Eos # (Auto) Baso # (Auto) Abs Immat Gran (auto) Absolute Neuts (auto) Absolute Nucleated RBC Total Counted Neutrophils % (Manual) Band Neutrophils % Lymphocytes % (Manual) Monocytes % (Manual) Metamyelocytes % Nucleated RBC % Abs Neuts (Manual) Abs Lymphs (Manual) Abs Monocytes (Manual) Nucleated RBCs Platelet Estimate Hypochromasia Anisocytosis Schistocytes PT INR APTT Fibrinogen D-Dimer Puncture Site ABG pH ABG pCO2 ABG pO2 ABG PO2/FiO2 Ratio ABG HCO3 ABG O2 Saturation ABG O2 Content ABG Base Excess A-a Gradient Oxyhemoglobin Carboxyhemoglobin Methemoglobin Reduced Hemoglobin Total Hemoglobin O2 Delivery Device O2 Liters/Min Minute Volume Vent Rate Vent Mode FiO2 Tidal Volume PEEP Peak Inspir Pressure Pressure Support Sodium Potassium Chloride Carbon Dioxide Anion Gap BUN Creatinine Estim Creat Clear Calc Estimated GFR Glucose Lactic Acid 3.6 H Calcium Phosphorus Magnesium Total Bilirubin AST ALT Alkaline Phosphatase Total Protein Albumin Procalcitonin Random Cortisol Urine Color Urine Appearance Urine pH Ur Specific [place] Urine Protein Urine Glucose (UA) Urine Ketones Ur Blood (Man) Urine Nitrate Urine Bilirubin Urine Urobilinogen Add Ur Microanalysis Leukocyte Esterase Rfl Urine RBC Urine WBC Ur Squamous Epith Cells Urine Bacteria Urine Casts Nasal MRSA (PCR) Blood Type Rho(D) Type Antibody Screen Crossmatch 08/26/25 08/26/25 08/26/25 22:03 22:03 22:03 WBC RBC 3.32 L Hgb 9.5 L 9.5 L D Hct 28.9 L 29.0 L MCV 86.8 MCH MCHC RDW Plt Count MPV Immature Gran % (Auto) Neut % (Auto) Lymph % (Auto) [place] % (Auto) Eos % (Auto) Baso % (Auto) Lymph # (Auto) [place] # (Auto) Eos # (Auto) Baso # (Auto) Abs Immat Gran (auto) Absolute Neuts (auto) Absolute Nucleated RBC Total Counted Neutrophils % (Manual) Band Neutrophils % Lymphocytes % (Manual) Monocytes % (Manual) Metamyelocytes % Nucleated RBC % Abs Neuts (Manual) Abs Lymphs (Manual) Abs Monocytes (Manual) Nucleated RBCs Platelet Estimate Hypochromasia Anisocytosis Schistocytes PT INR APTT Fibrinogen D-Dimer Puncture Site ABG pH ABG pCO2 ABG pO2 ABG PO2/FiO2 Ratio ABG HCO3 ABG O2 Saturation ABG O2 Content ABG Base Excess A-a Gradient Oxyhemoglobin Carboxyhemoglobin Methemoglobin Reduced Hemoglobin Total Hemoglobin O2 Delivery Device O2 Liters/Min Minute Volume Vent Rate Vent Mode FiO2 Tidal Volume PEEP Peak Inspir Pressure Pressure Support Sodium Potassium Chloride Carbon Dioxide Anion Gap BUN Creatinine Estim Creat Clear Calc Estimated GFR Glucose Lactic Acid Calcium Phosphorus Magnesium Total Bilirubin AST ALT Alkaline Phosphatase Total Protein Albumin Procalcitonin Random Cortisol Urine Color Urine Appearance Urine pH Ur Specific [place] Urine Protein Urine Glucose (UA) Urine Ketones Ur Blood (Man) Urine Nitrate Urine Bilirubin Urine Urobilinogen Add Ur Microanalysis Leukocyte Esterase Rfl Urine RBC Urine WBC Ur Squamous Epith Cells Urine Bacteria Urine Casts Nasal MRSA (PCR) Blood Type Rho(D) Type Antibody Screen Crossmatch 08/26/25 08/26/25 08/26/25 22:03 22:03 22:03 WBC RBC Hgb Hct MCV 87.3 D MCH 28.5 28.6 MCHC 32.9 32.8 RDW 14.4 Plt Count MPV Immature Gran % (Auto) Neut % (Auto) Lymph % (Auto) [place] % (Auto) Eos % (Auto) Baso % (Auto) Lymph # (Auto) [place] # (Auto) Eos # (Auto) Baso # (Auto) Abs Immat Gran (auto) Absolute Neuts (auto) Absolute Nucleated RBC Total Counted Neutrophils % (Manual) Band Neutrophils % Lymphocytes % (Manual) Monocytes % (Manual) Metamyelocytes % Nucleated RBC % Abs Neuts (Manual) Abs Lymphs (Manual) Abs Monocytes (Manual) Nucleated RBCs Platelet Estimate Hypochromasia Anisocytosis Schistocytes PT INR APTT Fibrinogen D-Dimer Puncture Site ABG pH ABG pCO2 ABG pO2 ABG PO2/FiO2 Ratio ABG HCO3 ABG O2 Saturation ABG O2 Content ABG Base Excess A-a Gradient Oxyhemoglobin Carboxyhemoglobin Methemoglobin Reduced Hemoglobin Total Hemoglobin O2 Delivery Device O2 Liters/Min Minute Volume Vent Rate Vent Mode FiO2 Tidal Volume PEEP Peak Inspir Pressure Pressure Support Sodium Potassium Chloride Carbon Dioxide Anion Gap BUN Creatinine Estim Creat Clear Calc Estimated GFR Glucose Lactic Acid Calcium Phosphorus Magnesium Total Bilirubin AST ALT Alkaline Phosphatase Total Protein Albumin Procalcitonin Random Cortisol Urine Color Urine Appearance Urine pH Ur Specific [place] Urine Protein Urine Glucose (UA) Urine Ketones Ur Blood (Man) Urine Nitrate Urine Bilirubin Urine Urobilinogen Add Ur Microanalysis Leukocyte Esterase Rfl Urine RBC Urine WBC Ur Squamous Epith Cells Urine Bacteria Urine Casts Nasal MRSA (PCR) Blood Type Rho(D) Type Antibody Screen Crossmatch 08/26/25 08/26/2525 22:03 22:03 22:03 WBC RBC Hgb Hct MCV MCH MCHC RDW 14.4 Plt Count 200 197 MPV 11.1 H 10.7 H Immature Gran % (Auto) 3.1 H Neut % (Auto) 85.3 H Lymph % (Auto) 5.3 L [place] % (Auto) 6.0 Eos % (Auto) 0.1 Baso % (Auto) 0.2 Lymph # (Auto) 0.87 L [place] # (Auto) 1.0 H Eos # (Auto) 0.0 Baso # (Auto) 0.0 Abs Immat Gran (auto) 0.52 H Absolute Neuts (auto) 14.1 H Absolute Nucleated RBC 0.190 H Total Counted Neutrophils % (Manual) Band Neutrophils % Lymphocytes % (Manual) Monocytes % (Manual) Metamyelocytes % Nucleated RBC % 1.1 H Abs Neuts (Manual) Abs Lymphs (Manual) Abs Monocytes (Manual) Nucleated RBCs Platelet Estimate Hypochromasia Anisocytosis Schistocytes PT 17.5 H INR 1.4 APTT 41.0 H Fibrinogen D-Dimer Puncture Site ABG pH ABG pCO2 ABG pO2 ABG PO2/FiO2 Ratio ABG HCO3 ABG O2 Saturation ABG O2 Content ABG Base Excess A-a Gradient Oxyhemoglobin Carboxyhemoglobin Methemoglobin Reduced Hemoglobin Total Hemoglobin O2 Delivery Device O2 Liters/Min Minute Volume Vent Rate Vent Mode FiO2 Tidal Volume PEEP Peak Inspir Pressure Pressure Support Sodium Potassium Chloride Carbon Dioxide Anion Gap BUN Creatinine Estim Creat Clear Calc Estimated GFR Glucose Lactic Acid Calcium Phosphorus Magnesium Total Bilirubin AST ALT Alkaline Phosphatase Total Protein Albumin Procalcitonin Random Cortisol Urine Color Urine Appearance Urine pH Ur Specific [place] Urine Protein Urine Glucose (UA) Urine Ketones Ur Blood (Man) Urine Nitrate Urine Bilirubin Urine Urobilinogen Add Ur Microanalysis Leukocyte Esterase Rfl Urine RBC Urine WBC Ur Squamous Epith Cells Urine Bacteria Urine Casts Nasal MRSA (PCR) Blood Type Rho(D) Type Antibody Screen Crossmatch 08/26/25 08/26/25 08/26/25 22:03 22:03 22:14 WBC RBC Hgb Hct MCV MCH MCHC RDW Plt Count MPV Immature Gran % (Auto) Neut % (Auto) Lymph % (Auto) [place] % (Auto) Eos % (Auto) Baso % (Auto) Lymph # (Auto) [place] # (Auto) Eos # (Auto) Baso # (Auto) Abs Immat Gran (auto) Absolute Neuts (auto) Absolute Nucleated RBC Total Counted Neutrophils % (Manual) Band Neutrophils % Lymphocytes % (Manual) Monocytes % (Manual) Metamyelocytes % Nucleated RBC % Abs Neuts (Manual) Abs Lymphs (Manual) Abs Monocytes (Manual) Nucleated RBCs Platelet Estimate Hypochromasia Anisocytosis Schistocytes PT INR APTT Cancelled Fibrinogen 210 L D-Dimer 1.07 H Puncture Site Artline ABG pH 7.384 ABG pCO2 40.1 ABG pO2 321.9 H ABG PO2/FiO2 Ratio 4.02 ABG HCO3 23.4 ABG O2 Saturation 99.7 ABG O2 Content 14.3 L ABG Base Excess -1.5 A-a Gradient 206.4 Oxyhemoglobin 98.9 Carboxyhemoglobin 0.3 Methemoglobin 0.2 Reduced Hemoglobin 0.6 Total Hemoglobin 9.7 L O2 Delivery Device Ventilator O2 Liters/Min Not Reportable Minute Volume Not Reportable Vent Rate 18 Vent Mode Cmv FiO2 80 Tidal Volume 350 PEEP 5 Peak Inspir Pressure Not Reportable Pressure Support Not Reportable Sodium 130 L Potassium 5.5 H Chloride 101 Carbon Dioxide 23 Anion Gap 6 BUN 55 H Creatinine 0.87 Estim Creat Clear Calc 46 Estimated GFR > 60 Glucose 188 H Lactic Acid 3.9 H Calcium 7.4 L Phosphorus 4.8 H Magnesium 2.0 2.0 Total Bilirubin 0.4 AST 31 ALT 11 Alkaline Phosphatase 51 Total Protein 4.1 L Albumin 1.7 L Procalcitonin 0.3 Random Cortisol 25.30 Urine Color Yellow Urine Appearance Clear Urine pH 5.5 Ur Specific [place] 1.033 Urine Protein Trace Urine Glucose (UA) Negative Urine Ketones Negative Ur Blood (Man) Negative Urine Nitrate Positive H Urine Bilirubin Negative Urine Urobilinogen 0.2 Add Ur Microanalysis Reviewed Leukocyte Esterase Rfl Trace H Urine RBC 0-2 Urine WBC 0-5 Ur Squamous Epith Cells Occasional Urine Bacteria 4+ H Urine Casts 11-20 Nasal MRSA (PCR) Not detected Blood Type Rho(D) Type Antibody Screen Crossmatch Impressions Chest X-Ray 08/26/25 17:38 Impression: Mild CHF Abdomen/Pelvis CT 08/26/25 19:55 (CT personally reviewed interpreted prior to radiologic interpretation) IMPRESSION: Thickening of the distal stomach and proximal duodenum with a focus of active bleeding suspected in this area although noncontrast images were not obtained. Endoscopy is recommended to assess. There are additional thickened loops of proximal small bowel probably related to underlying enteritis. Results discussed with the referring clinician immediately EKG in telemetry reviewed. Assessment and Plan Assessment and plan (1) Hemorrhagic shock: Code(s): R57.8 - Other shock Status: Acute (2) Duodenal ulcer hemorrhage: Code(s): K26.4 - Chronic or unspecified duodenal ulcer with hemorrhage Status: Acute (3) DIC (disseminated intravascular coagulation): Code(s): D65 - Disseminated intravascular coagulation [defibrination syndrome] Status: Acute (4) Acute hypoxic respiratory failure: Code(s): J96.01 - Acute respiratory failure with hypoxia Status: Acute (5) Acute blood loss anemia: Code(s): D62 - Acute posthemorrhagic anemia Status: Acute (6) Paroxysmal atrial fibrillation with rapid ventricular response: Code(s): I48.0 - Paroxysmal atrial fibrillation Status: Acute (7) Acute hyperkalemia: Code(s): E87.5 - Hyperkalemia Status: Acute (8) Acute lactic acidosis: Code(s): E87.21 - Acute metabolic acidosis Status: Acute Plan Patient has hemorrhagic shock due to pulsatile duodenal ulcer with unsuccessful attempt at EGD with Marvin is timur yen and medication administration with epinephrine into ulcer base. Mass transfusion protocol was ordered but due to difficulty obtaining blood products patient did not receive all of the FFP that was ordered. She did receive packed red blood cells with totals listed under HPI. Repeat hemoglobin after initial 5 units of blood transfusion in the ER demonstrated 8 improvement in hemoglobin up to 9.6. Platelet count was stable near 200. INR was 1.4 but PT PTT and D-dimer were elevated. Fibrinogen was low at 210. Orders were placed for cryoprecipitate FFP and platelets as discussed under HPI. The patient did receive stress dose steroids with Solu-Cortef while in the ER. Random cortisol was normal. Protonix drip was continued. The patient did have acute hypoxic respiratory failure with relatively mild hypoxia but she was intubated for airway protection due to hematemesis. ET tube missed 21 cm at the lip. Patient was started on ventilator settings a.c. CMV tidal volume 350 peep of 5 rate of 18. Patient's FiO2 was titrated down to 50% went ABG demonstrated PO2 of 321. The patient had pH of 7.384 and pCO2 of 40 this ABG was obtained approximately 2 hours after intubation. The patient was receiving intermittent sedation with Versed pushes. Repeat labs after her initial resuscitation did demonstrate resolution of her mild acute kidney injury with mild elevation of potassium at 5.1. Patient was still having adequate urine output. The patient was continued on pressors with goal to keep systolic blood pressures between 80 and 95 to maintain perfusion but minimize excessive loss from arterial bleed at patient's ulcer site. Efforts were made to transfer the patient. In the process of trying to transfer the patient I was notified that we had only a few of units of blood left at the facility. Given increased urgency of the situation and may point final attempt to transfer the patient to tertiary care. Thankfully the ICU fellow at [place] Dr. Plascencia accepted the patient with the accepting attending on service being Dr. LICONA. At the time of transfer blood pressures had improved but by the time areas ambulance had arrived we had utilized all but 1 unit of packed red blood cells available within our facility. On the cuff pressures up to 90s to low 100s with pressors maxed out as discuss above. The last unit of blood that had been typed and screened and FFP was sent with paramedics in the process of transfer. The patient's home med rec was not available for complete verification at the time of my evaluation. The patient's home caregiver did report that the patient is on ?a lot of supplements?. I found a list from a outpatient office visit in 2022 that demonstrated the patient is on 15 different executive creative director ex supplements including but not limited to gingko biloba, probiotics, lutein, spearmint will, taurine, hilar on a casted, CBD, calcium and leucine. It is unknown if the patient has been consuming any NSAIDs. 5.5 hours spent in critical care activities. Due to a high probability of clinically significant, life threatening deterioration, the patient required my highest level of preparedness to intervene emergently and I personally spent this critical care time directly and personally managing the patient. This critical care time included obtaining a history; examining the patient; pulse oximetry; ordering and review of studies; arranging urgent treatment with development of a management plan; evaluation of patient's response to treatment; frequent reassessment; and discussions with other providers. It was exclusive of separately billable procedures and treating other patients and teaching time. Please see Assessment and Plan section and the rest of the note for further information on patient assessment and treatment. Hospitalist MIPS Advance Care Plan I have confirmed that the patient's Advanced Care Plan is present, code status is documented, or surrogate decision maker is listed in patient medical record.: Yes
[2025-08-26] MEDS: CALCIUM GLUC 1,000 MG/NS 50 ML 1,000 MG/50 ML BAG 100 MG IVPB (22:07)
[2025-08-26] MEDS: ALBUMIN HUMAN 25% 25 GM/100 ML 200 ML IVPB (22:08)
[2025-08-26 22:14] LABS: Hematocrit 28.9 % (37.0-47.0); Hematocrit 29.0 % (37.0-47.0); Hemoglobin 9.5 g/dL (12.0-15.0); Immature Granulocyte Percent A 3.1 % (0-0.5); Lymphocytes Absolute Auto 0.87 K/mm3 (0.9-3.2); Mean Corpuscular HGB Conc 32.8 g/dl (32-36); Mean Corpuscular HGB Conc 32.9 g/dl (32-36); Mean Corpuscular Hemoglobin 28.5 pg (26-34); Mean Corpuscular Hemoglobin 28.6 pg (26-34); Mean Corpuscular Volume 86.8 fl (80-100); Mean Corpuscular Volume 87.3 fl (80-100); Nucleated Red Blood Cells Absolute Auto 0.190 K/mm3 (0.0-0.012); Nucleated Red Blood Cells Perc 1.1 % (0.0-0.2); Platelet Count Result 197 k/mm3 (150-375); Platelet Count Result 200 k/mm3 (150-375); Red Blood Count 3.32 M/mm3 (4.2-5.4); Red Blood Count 3.33 M/mm3 (4.2-5.4); White Blood Count 16.6 K/mm3 (4.5-10.0); White Blood Count 17.1 K/mm3 (4.5-10.0)
[2025-08-26 22:19] LABS: Alveolar/Arterial O2 Gradient 206.4 mmHg; Carboxyhemoglobin 0.3 % THb (0-2.0); Fractional Inspired Oxygen 80 %; HCO3 ABG 23.4 mEq/l (22.0-26.0); Methemoglobin ABG 0.2 %THb (0-1.5); Oxygen Content ABG 14.3 %vol (16.0-22.0); Oxygen Saturation ABG 99.7 % (95.0-100.0); PCO2 ABG 40.1 mmHg (35.0-45.0); PO2 ABG 321.9 mmHg (80.0-100.0); PO2 FiO2 Ratio Arterial Blood 4.02 %; Reduced Hemoglobin 0.6 %THb (0-5.0)
[2025-08-26 22:20] LABS: Arterial Blood Gas Tidal Volume 350 ml; Arterial Blood Gas Ventilator rate 18 /MIN; Site Drawn ARTLINE
[2025-08-26 22:25] LABS: Alanine Aminotransferase 11 U/L (6-35); Albumin Level 1.7 g/dL (3.5-5.1); Alkaline Phosphatase 51 U/L (38-126); Anion Gap 6 mmol/L (4-12); Aspartate Amino Transferase 31 U/L (14-36); Bilirubin,Total 0.4 mg/dL (0.2-1.3); Blood Urea Nitrogen 55 mg/dL (7-17); Calcium 7.4 mg/dL (8.4-10.2); Carbon Dioxide 23 mmol/L (22-30); Chloride 101 mmol/L (98-107); Estimated CRCL calculation 46 ml/min; Estimated Glomerular Filt Rate > 60; Glucose 188 mg/dL (65-110); Magnesium 2.0 mg/dL (1.6-2.3); Potassium 5.5 mmol/L (3.4-5.0); Sodium 130 mmol/L (137-145); Total Protein 4.1 g/dL (6.3-8.2)
[2025-08-26 22:28] LABS: INR 1.4; Prothrombin Time 17.5 Seconds (11.1-14.7)
[2025-08-26 22:29] LABS: Partial Thromboplastin Time 41.0 Seconds (22.3-36.8)
[2025-08-26 22:30] LABS: Fibrinogen 210 mg/dl (215-510)
--- NOTE | 2025-08-26 22:30 | PC.NURSE ---
This patient, Imelda Orellana, was admitted to Intensive Care Unit-3. Patient/family oriented to hospital policies and general routines including ID bracelet, bed and alarms, visiting hours, pain management, procedures, bathroom and other care routines, personal items, smoking policy, room service/diet, and visiting hours. Information on how to activate the Rapid Response Team has been discussed. Patient/Family are encouraged to report perceived risks to care and to ask questions if they do not understand what they are told or what they should do.
--- NOTE | 2025-08-26 22:32 | WPDGICN ---
Assessment and Plan Assessment and plan (1) Acute upper GI bleed: Code(s): K92.2 - Gastrointestinal hemorrhage, unspecified Status: Acute Assessment and Plan: she is acutely ill and still with active bleeding, intubated and just arrived to icu she is on 2 pressors and received blood products will proceed with emergent EGD iv protonix (2) Melena: Code(s): K92.1 - Melena Status: Acute (3) Acute blood loss anemia: Code(s): D62 - Acute posthemorrhagic anemia Status: Acute Assessment and Plan: s/p 5 units prbc monitor for more signs of bleeding (4) Syncope: Code(s): R55 - Syncope and collapse Status: Acute (5) Hemorrhagic shock: Code(s): R57.8 - Other shock Status: Acute Assessment and Plan: on pressors protonix, blood products emergent EGD to identify site of bleeding and provide treatment prognosis is guarded (6) Atrial fibrillation with rapid ventricular response: Code(s): I48.91 - Unspecified atrial fibrillation Status: Acute GI Consult Note Consult date/time: 08/26/25 22:32 Reason for consult: gib, acute anemia HPI: Imelda Orellana is a 89 year old female here after syncopal episode and melena, patient is currently intubated because shock and started on pressors, noted acue anemia with hgb 4.4, already given 5 units of blood transfusion and just arrived to floor, repeat hgb 9.5, lactic 3.5. Platelets 197. CT scan showed thickening of the distal stomach and proximal duodenum with a focus of active bleeding suspected in this area although noncontrast images were not obtained. No family at bedside and history obtained from records. Also noted atrial fib with RVR, she is full code. Systolic Blood pressure is quite low ~ 50 despite pressors Review of Systems Review of Systems: ROS unobtainable: Yes unobtainable due to endotracheal tube, unobtainable due to medical condition and unobtainable due to mental status PMFSH Past Medical History Medical History (Updated 08/26/25 @ 22:40 by Wilder Hollins MD) Syncope Acute blood loss anemia Melena Follow up Synovial cyst of popliteal space [[place]], left knee Seasonal allergies Impaired functional mobility, balance, gait, and endurance Chronic back pain Depression Encounter for routine adult health examination with abnormal findings Pedal edema Family History Family History Mother ETOHism Father ETOHism Social History Social History Smoking status: Former smoker Alcohol intake: never Do You Feel Safe in your Home?: Yes Lack of Transportation: YES Lack of Food: Never True Current Housing: I Have Housing Concerned About Future Housing: No Difficulty Paying Gas/Electric Bills: No Difficulty Paying for Meds: No Currently Unemployed: No Education: Master's Degree or Higher Difficulty w/ Childcare or Family Care: No Living arrangements: alone Occupation/Education: occupation Gender identity (if verbalized by the patient): Female Meds Home Medications and Allergies Home Medications ?Medication ?Instructions ?Recorded ?Confirmed ?Type Inner Ear Balance BYMOUTH 03/30/25 08/02/25 History acetaminophen 325 mg tablet 325 mg PO Q6H PRN 03/30/25 08/02/25 History (Tylenol) [facility]'s wort 300 mg capsule 300 mg PO DAILY PRN 08/01/25 08/02/25 History beetroot BYMOUTH PRN 08/01/25 08/02/25 History cholecalciferol (vitamin D3) 50 50 mcg PO DAILY PRN 08/01/25 08/02/25 History mcg (2,000 unit) capsule coenzyme Q10 75 mg capsule (Ultra 75 mg PO DAILY PRN 08/01/25 08/02/25 History CoQ10) goldenseal root 333 mg capsule mg PO PRN 08/01/25 08/02/25 History keratin 5 % topical gel ea topical PRN 08/01/25 08/02/25 History lutein 40 mg capsule 40 mg PO DAILY PRN 08/01/25 08/02/25 History lysine HCl 500 mg capsule 500 mg PO DAILY PRN 08/01/25 08/02/25 History saffron extract 176.5 mg tablet mg PO 08/01/25 08/02/25 History black cohosh 200 mg capsule 200 mg PO DAILY 08/02/25 08/02/25 History triamterene 37.5 1 cap PO .3x/week #30 caps 08/02/25 08/02/25 Rx mg-hydrochlorothiazide 25 mg capsule Held on 08/21/25. Instructions: Pt not taking now. Edema down Allergies Allergy/AdvReac Type Severity Reaction Status Date / Time gabapentin Allergy Severe Swelling Verified 03/30/25 11:37 of Lip/Tongue/Throat Sulfa (Sulfonamide Allergy Unknown Unknown Verified 03/30/25 11:37 Antibiotics) tramadol Allergy Unknown Unknown Verified 03/30/25 11:37 codeine Allergy Unknown Verified 03/30/25 11:37 Vital Signs Vital Signs - 24 hr 08/26/25 16:53 08/26/25 17:02 08/26/25 17:05 Temperature 98.3 F Pulse Rate 162 H 153 H Respiratory Rate 33 H 36 H Blood Pressure 125/105 H 84/41 L Pulse Oximetry 99 99 98 Oxygen Delivery Room Air Nasal Cannula Oxygen Flow Rate 2 Fraction of Inspired Oxygen 08/26/25 17:11 08/26/25 17:12 08/26/25 17:15 Temperature Pulse Rate 145 H 138 H 149 H Respiratory Rate 35 H 32 H 30 H Blood Pressure 80/44 L Pulse Oximetry 99 98 100 Oxygen Delivery Oxygen Flow Rate Fraction of Inspired Oxygen 08/26/25 17:16 08/26/25 17:26 08/26/25 17:30 Temperature Pulse Rate 141 H 139 H 137 H Respiratory Rate 34 H 22 H 24 H Blood Pressure 79/41 L 83/45 L Pulse Oximetry 98 Oxygen Delivery Oxygen Flow Rate Fraction of Inspired Oxygen 08/26/25 17:31 08/26/25 17:32 08/26/25 17:41 Temperature Pulse Rate 134 H 143 H 133 H Respiratory Rate 36 H 33 H 34 H Blood Pressure 76/38 L 79/44 L Pulse Oximetry 100 97 Oxygen Delivery Oxygen Flow Rate Fraction of Inspired Oxygen 08/26/25 17:45 08/26/25 17:46 08/26/25 17:47 Temperature Pulse Rate 132 H 129 H 127 H Respiratory Rate 24 H 26 H 30 H Blood Pressure 67/28 L Pulse Oximetry 95 99 100 Oxygen Delivery Oxygen Flow Rate Fraction of Inspired Oxygen 08/26/25 17:49 08/26/25 18:04 08/26/25 18:06 Temperature 98.0 F Pulse Rate 134 H 134 H 143 H Respiratory Rate 24 H 31 H 30 H Blood Pressure 67/28 L 92/49 L Pulse Oximetry 93 95 100 Oxygen Delivery Oxygen Flow Rate Fraction of Inspired Oxygen 08/26/25 18:07 08/26/25 18:11 08/26/25 18:12 Temperature Pulse Rate 142 H 148 H 144 H Respiratory Rate 26 H 30 H 31 H Blood Pressure 78/52 L Pulse Oximetry 100 99 Oxygen Delivery Oxygen Flow Rate Fraction of Inspired Oxygen 08/26/25 18:17 08/26/25 18:22 08/26/25 18:31 Temperature Pulse Rate 140 H 123 H 106 H Respiratory Rate 27 H Blood Pressure 76/63 L 77/35 L 77/35 L Pulse Oximetry 100 Oxygen Delivery Oxygen Flow Rate Fraction of Inspired Oxygen 08/26/25 18:32 08/26/25 18:35 08/26/25 18:38 Temperature 97.8 F 97.4 F L Pulse Rate 107 H 111 H 122 H Respiratory Rate 31 H 33 H Blood Pressure 77/35 L 64/35 L 64/43 L Pulse Oximetry 100 100 Oxygen Delivery Oxygen Flow Rate Fraction of Inspired Oxygen 08/26/25 18:41 08/26/25 18:49 08/26/25 19:01 Temperature 97.4 F L Pulse Rate 128 H 111 H 99 Respiratory Rate 31 H 28 H 33 H Blood Pressure 80/37 L 84/43 L 93/46 L Pulse Oximetry 100 100 100 Oxygen Delivery Oxygen Flow Rate Fraction of Inspired Oxygen 08/26/25 19:02 08/26/25 19:11 08/26/25 19:30 Temperature Pulse Rate 96 91 80 Respiratory Rate 22 H Blood Pressure 93/46 L 110/58 L 95/67 L Pulse Oximetry 100 Oxygen Delivery Oxygen Flow Rate Fraction of Inspired Oxygen 08/26/25 19:48 08/26/25 20:16 08/26/25 20:21 Temperature Pulse Rate 82 109 H 112 H Respiratory Rate 26 H 18 27 H Blood Pressure 108/51 L 94/65 L Pulse Oximetry 100 Oxygen Delivery Oxygen Flow Rate Fraction of Inspired Oxygen 08/26/25 20:30 08/26/25 20:31 08/26/25 20:32 Temperature Pulse Rate 100 100 102 H Respiratory Rate 34 H 27 H 34 H Blood Pressure 76/56 L 90/73 L Pulse Oximetry 95 93 97 Oxygen Delivery Oxygen Flow Rate Fraction of Inspired Oxygen 08/26/25 20:33 08/26/25 20:40 08/26/25 20:50 Temperature 98 F Pulse Rate 100 107 H 91 Respiratory Rate 26 H Blood Pressure 76/56 L 82/59 L Pulse Oximetry 98 100 Oxygen Delivery Mechanical Ventilation Oxygen Flow Rate Fraction of Inspired Oxygen 100 08/26/25 20:55 08/26/25 21:10 08/26/25 21:16 Temperature 98 F Pulse Rate 85 100 141 H Respiratory Rate 20 Blood Pressure 82/53 L 112/78 Pulse Oximetry 100 Oxygen Delivery Oxygen Flow Rate Fraction of Inspired Oxygen 08/26/25 21:17 08/26/25 21:20 08/26/25 21:22 Temperature 98 F 98 F Pulse Rate 110 H 184 H 93 Respiratory Rate 18 24 H 18 Blood Pressure 112/78 90/42 L 88/39 L Pulse Oximetry 100 100 100 Oxygen Delivery Oxygen Flow Rate Fraction of Inspired Oxygen 08/26/25 21:25 08/26/25 21:34 08/26/25 21:35 Temperature 97.7 F Pulse Rate 101 H 84 95 Respiratory Rate 18 18 Blood Pressure 85/25 L 145/58 H Pulse Oximetry 100 Oxygen Delivery Oxygen Flow Rate Fraction of Inspired Oxygen 08/26/25 21:38 08/26/25 21:41 08/26/25 21:50 Temperature 98 F 98 F 98.0 F Pulse Rate 91 88 129 H Respiratory Rate 20 18 18 Blood Pressure 143/50 H 107/47 L 85/25 L Pulse Oximetry 99 99 98 Oxygen Delivery Oxygen Flow Rate Fraction of Inspired Oxygen 08/26/25 22:20 Temperature Pulse Rate 119 H Respiratory Rate Blood Pressure 71/38 L Pulse Oximetry Oxygen Delivery Oxygen Flow Rate Fraction of Inspired Oxygen Exam Const: Other: acute ill, intubated HENMT: Other: NGT in place Eyes: Sclera: sclerae normal Neck: Neck: supple Resp: Other: patient is intubated, rales Cardio: Rhythm: abnormal rhythm irregularly irregular GI: Inspection: distended Skin: Other: pallor Neuro: Other: sedated and intubated Extrem: General: normal to inspection Psych: Other: unable to assess Results Labs 08/26/25 22:03 08/26/25 22:03 Labs: Short CBC 08/26/25 08/26/25 08/26/25 Range/Units 17:08 22:03 22:03 WBC 9.8 17.1 H 16.6 H (4.5-10.0) K/mm3 Hgb 4.4 L* D 9.5 L (12.0-15.0) g/dL Hct 15.2 L* (37.0-47.0) % Plt Count 390 H D (150-375) k/mm3 08/26/25 08/26/25 08/26/25 Range/Units 22:03 22:03 22:03 WBC (4.5-10.0) K/mm3 Hgb 9.5 L D (12.0-15.0) g/dL Hct 28.9 L 29.0 L (37.0-47.0) % Plt Count 200 197 (150-375) k/mm3 BMP 08/26/25 08/26/25 17:08 22:03 Sodium 132 L 130 L Potassium 4.9 5.5 H Chloride 101 101 Carbon Dioxide 10 L 23 BUN 57 H D 55 H Creatinine 1.11 H 0.87 Glucose 174 H 188 H Calcium 8.3 L 7.4 L Liver Function 08/26/25 08/26/25 Range/Units 17:08 22:03 Total Bilirubin 0.2 0.4 (0.2-1.3) mg/dL AST 30 31 (14-36) U/L ALT 26 11 (6-35) U/L Alkaline Phosphatase 56 51 (38-126) U/L Albumin 2.5 L 1.7 L (3.5-5.1) g/dL
[2025-08-26 22:33] LABS: Magnesium 2.0 mg/dL (1.6-2.3)
[2025-08-26] MEDS: NOREPINEPHRINE 8 MG/D5W 250 ML 8 MG/250 ML BAG 93.75 MG IV CONT (22:40)
[2025-08-26 22:44] LABS: Procalcitonin 0.3 ng/mL
[2025-08-26] MEDS: SODIUM BICARBONATE 8.4% 50 MEQ/50 ML SYRINGE IV PUSH (22:47)
[2025-08-26] MEDS: HYDROCORTISONE SODIUM SUCCINATE 100 MG/2 ML VIAL IV PUSH (22:48)
--- NOTE | 2025-08-26 22:54 | PC.NURSE ---
20:30 Patient becoming drowsy. MD consented with patient to intubate. MD educated patient on risks and benefits of intubation. RT called, family escorted to family room in ED 20:44 20mg Etomidate given via IV via MD order 20:45 100mg Rocuronium given via IV per MD order 20:46 Patient intubated 7.5 ETT 21 at the lips 20:47 Dilaudid 0.5 mg given via IV per MD order 20:48 5mg Versed given via IV per MD order 20:55 Levophed started X-ray in room to scan ETT/NGT
[2025-08-26 22:56] LABS: Add Urine Microscopic? YES; Appearance Urine Clear (Clear); Glucose Urine UA Negative (Negative); Leukocyte Esterase Ur Trace LEU/UL (Negative); Need Manual Microscopic Reviewed; Nitrate Urine Positive (Negative); Specific Grav Ur 1.033 (1.001-1.035)
[2025-08-26] MEDS: MIDAZOLAM HCL (*CRX) 2 MG/2 ML VIAL IV PUSH ×3 (22:59→23:48)
[2025-08-26 23:26] LABS: MRSA (PCR) NOT DETECTED (NOT DETECTE)
[2025-08-26] MEDS: VASOPRESSIN INJ 100 UNITS in DEXTROSE 5% 95 ML IV CONT (23:55)
[2025-08-27] VITALS (23 sets, daily range): BP systolic 42–130; BP diastolic 32–86; PULSE 120–144; RESP 18–27; TEMP 35.7–36.1; O2SAT 90–99; BMI 32.0
[2025-08-27] MEDS: PHENYLEPHRINE HCL INJ 50 MG in SODIUM CHLORIDE 0.9% IV 245 ML 45 ML IV CONT
[2025-08-27] MEDS: TUBING, BLOOD PLUM PUMP TUBING 3 EACH XX
[2025-08-27] MEDS: SODIUM CHLORIDE 0.9% IV 250 ML 30 ML IV CONT ×3 (00:10→02:00)
[2025-08-27] MEDS: EPINEPHrine INJ 1 MG/10 ML SYRINGE XX ×2 (00:15→00:16)
[2025-08-27] MEDS: LACTATED RINGERS 1,000 ML 999 ML IV CONT ×3 (01:00→02:00)
[2025-08-27] MEDS: FENTANYL 2,500MCG/NS250ML(*CRX 2,500 MCG/250 ML BAG IV CONT (01:04)
--- NOTE | 2025-08-27 05:50 | PC.NURSE ---
Addendum entered by Tita Faulkner RN 08/27/25 06:11: Amp of bicarb given per Dr. Chaney out of crash cart at 2240,2245, and 0009 Calcium Gluconate given per Dr. Chaney out of crash cart at 2246 and 0000 Original Note: Patient arrived to unit hemodynamically unstable, orders to titrate pressors outside of parameters. GI and hospitalist at bedside. Pt had upper endoscopy, large ulcer found to be pulsating/bleeding. Dr. Hewitt took measures to stop bleeding, ulcer not responsive to epi injected by Dr. Hewitt. Bleeding slowed down by Dr. Hewitt. Mass transfusion protocol initiated, multiple blood products given throughout night to attempt to keep pt stable. Pressors titrated to keep blood pressure stable/appropriate. Hospitalist at bedside throughout night giving verbal orders. Pt flown out by [employer] and escorted down by this RN and warehouse administrative assistant. Pt awake throughout night due to lack of sedation to keep BP stable. Pt able to nod yes and no shook, her head yes when asked by hospitalist if she wanted the medical team to do everything to keep her alive.
== END 2025-08-27 02:32 | disposition short-term general hospital (02) | DRG 377 ==
LOC: ANHED 20:04 → ANHICU 22:56
PROVIDERS: Internal Medicine Gastroenterology; Admitting Provider Internal Medicine; Emergency Provider Emergency Medicine; PCP Internal Medicine; Visit Provider Internal Medicine
PROC: 0DJ08ZZ Inspection of Upper Intestinal Tract, Via Natural or Artificial Opening Endoscopic (ICD-10-PCS; principal; 2025-08-26 21:25)
DX: K26.4 Chronic or unspecified duodenal ulcer with hemorrhage (principal); J96.01 Acute respiratory failure with hypoxia; R57.8 Other shock; D62 Acute posthemorrhagic anemia; E87.21 Acute metabolic acidosis; N17.9 Acute kidney failure, unspecified; R55 Syncope and collapse; E86.0 Dehydration; I48.0 Paroxysmal atrial fibrillation; E87.5 Hyperkalemia
CPT/HCPCS: 36415; 36430; 36600; 71045; 74177; 80053; 81001; 82375; 82533; 82805; 83050; 83605; 83735; 84100; 84145; 85018; 85025; 85027; 85380; 85384; 85730; 86850; 86900; 86901; 86920; 86923; 87086; 87186; 87641; 93005; 94002; 96365; 96372; 96375; 99285; C1052; C1751; J0168; J0283; J0612; J0616; J1171; J1265; J1650; J1720; J2003; J2250; J2371; J2470; J2720; J2765; J3010; J7030; J7040; J7050; J7120; P9012; P9016; P9017; P9034; P9045; P9047; Q9967